=== PATIENT | male | born 1950 | race Caucasian/White ===

== ENCOUNTER 2016-10-24 08:32 | Emergency (ER) | payer OTHER ==
[2016-10-24] MEDS ORDERED: Nitroglycerin 0.4 MG Tab.SL SL PRN (08:39)
[2016-10-24] MEDS ORDERED: Aspirin 81 MG Tab.Chew PO ONE (08:39)
--- NOTE | 2016-10-24 08:53 | EDM.PDOC ---
<Ly Donato - Last Filed: 10/24/16 10:32> ED HISTORY OF PRESENT ILLNESS - General Chief Complaint: Chest Pain Stated Complaint: CHEST HURTING REALLY BAD Time Seen by Provider: 10/24/16 08:34 - History of Present Illness INITIAL COMMENTS - FREE TEXT/NARRATIVE: This is Dr. Donato dictating an addendum note as a supervising physician on this case. I agree with history and physical as above. The patient does follow here in our clinic and has a history of hypertension. 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 He is a one pack a day smoker denies drug use. Initially he told the resident that his chest pain was a 6/10 but on my evaluation he states it was "barely in the air and significantly improved". The patient describes the pain as a pressure- like feeling in his mid sternum it is nonradiating and not associated with diaphoresis or nausea. He says he's been short of breath on and off over the last few weeks but he cannot quantitate or identify a trigger. He says that with the discomfort this morning he did feel short of breath and that has since resolved as well. He is eating and drinking normally and states he has not had a cardiac evaluation for at least 8 years. We will proceed to followup or testing and plan disposition for admission for further monitoring and cardiac evaluation. All testing results were discussed with the patient and he was off for 23 hour observation which he is refusing. Patient understands that we cannot rule out cardiac problems in the ER and that he would need to have an observational period with more testing and he is aware of this and refuses. He is aware of risk benefits accepts them and says he will call for a clinic appointment. I also advised that he could return to the ER if he chooses to be admitted. Patient is currently pain-free - Related Data Allergies/ADRs: Allergies Allergy/AdvReac Type Severity Reaction Status Date / Time Sulfa (Sulfonamide Allergy Rash Verified 12/01/13 10:04 Antibiotics) Home Meds: Home Meds Losartan [Cozaar] 1 tab PO DAILY 03/04/15 [History] amLODIPine Besylate [Amlodipine Besylate] 1 tab PO DAILY 03/04/15 [History] Multivitamin [Multivitamins] 1 tab PO DAILY 06/12/16 [History] Course - Vital Signs Last Recorded V/S: Last Vital Signs Temp 97.5 F 10/24/16 08:39 Pulse 82 10/24/16 08:39 Resp 20 10/24/16 08:39 BP 148/91 H 10/24/16 08:49 Pulse Ox 94 L 10/24/16 08:39 - Orders/Labs/Meds Orders: Active Orders 24 hr Category Date Time Status EKG Documentation Completion [RC] STAT Care 10/24/16 08:39 Active Oxygen Therapy, ED [RC] ASDIRECTED Care 10/24/16 08:40 Active Labs: Laboratory Tests 10/24/16 10/24/16 10/24/16 Range/Units 08:40 08:40 08:40 WBC 9.19 (4.0-11.0) K/uL RBC 5.57 (4.50-5.90) M/uL Hgb 16.3 (13.0-17.0) g/dL Hct 48.9 (38.0-50.0) % MCV 87.8 (80.0-98.0) fL MCH 29.3 (27.0-32.0) pg MCHC 33.3 (31.0-37.0) g/dL RDW Std Deviation 45.8 (28.0-62.0) fl RDW Coeff of Christopher 14 (11.0-15.0) % Plt Count 229 (150-400) K/uL MPV 10.60 (7.40-12.00) fL Neut % (Auto) 57.8 (48.0-80.0) % Lymph % (Auto) 29.1 (16.0-40.0) % Bingham % (Auto) 11.0 (0.0-15.0) % Eos % (Auto) 1.7 (0.0-7.0) % Baso % (Auto) 0.4 (0.0-1.5) % Neut # (Auto) 5.3 (1.4-5.7) K/uL Lymph # (Auto) 2.7 H (0.6-2.4) K/uL Bingham # (Auto) 1.0 H (0.0-0.8) K/uL Eos # (Auto) 0.2 (0.0-0.7) K/uL Baso # (Auto) 0.0 (0.0-0.1) K/uL Nucleated RBC % 0.0 /100WBC Nucleated RBCs # 0 K/uL Sodium 141 (136-146) mmol/L Potassium 4.5 (3.5-5.1) mmol/L Chloride 109 (98-110) mmol/L Carbon Dioxide 24 (21-31) mmol/L BUN 25 H (6.0-23.0) mg/dL Creatinine 1.4 (0.6-1.5) mg/dL Est Cr Clr Drug Dosing 48.10 mL/min Estimated GFR (MDRD) 51.0 ml/min Glucose 97 (60-110) mg/dL Calcium 9.2 (8.8-10.8) mg/dL Total Bilirubin 0.5 (0.1-1.5) mg/dL AST 20 (5-40) IU/L ALT 19 (8-54) IU/L Alkaline Phosphatase 98 (40-150) CK-MB (CK-2) 2.1 (0-6.6) ng/ml Troponin I < 0.10 (0.0-0.29) NG/ML Total Protein 7.4 (6.0-8.0) g/dL Albumin 4.2 (3.4-4.8) g/dL Globulin 3.2 (2.0-3.5) g/dL Albumin/Globulin Ratio 1.3 (1.3-2.8) Meds: Medications Discontinued Medications Generic Name Dose Route Start Last Admin Trade Name Freq PRN Reason Stop Dose Admin Aspirin 324 mg 10/24/16 08:39 10/24/16 08:48 Aspirin PO 10/24/16 08:40 324 mg ONETIME ONE Administration Nitroglycerin 0.4 mg 10/24/16 08:39 10/24/16 08:49 Nitrostat SL 10/24/16 08:50 0.4 mg Q5M PRN Administration Chest Pain Departure - Departure Time of Disposition: 10:33 Disposition: Home, Self-Care 01 Condition: good Clinical Impression: Chest pain Qualifiers: Chest pain type: unspecified Qualified Code(s): R07.9 - Chest pain, unspecified Referrals: PCP,None [Primary Care Provider] - Forms: ED Department Discharge Additional Instructions: The following information is given to patients seen in the emergency department who are being discharged to home. This information is to outline your options for follow-up care. We provide all patients seen in our emergency department with a follow-up referral. The need for follow-up, as well as the timing and circumstances, are variable depending upon the specifics of your emergency department visit. If you don't have a primary care physician on staff, we will provide you with a referral. We always advise you to contact your personal physician following an emergency department visit to inform them of the circumstance of the visit and for follow-up with them and/or the need for any referrals to a consulting specialist. The emergency department will also refer you to a specialist when appropriate. This referral assures that you have the opportunity for followup care with a specialist. All of these measure are taken in an effort to provide you with optimal care, which includes your followup. Under all circumstances we always encourage you to contact your private physician who remains a resource for coordinating your care. When calling for followup care, please make the office aware that this follow-up is from your recent emergency room visit. If for any reason you are refused follow-up, please contact the [facility] emergency department at and ask to speak to the emergency department charge nurse. [facility] Primary care- Internal Medicine [place] [address] Please call and followup with her clinic physician and please try to reduce and stop smoking. Please return to the ER as needed and as discussed. - My Orders Last 24 Hours: My Active Orders 10/24/16 08:39 EKG Documentation Completion [RC] STAT 10/24/16 08:40 Oxygen Therapy, ED [RC] ASDIRECTED - Assessment/Plan Last 24 Hours: My Active Orders 10/24/16 08:39 EKG Documentation Completion [RC] STAT 10/24/16 08:40 Oxygen Therapy, ED [RC] ASDIRECTED <Leonor Fleming - Last Filed: 10/24/16 10:34> ED HISTORY OF PRESENT ILLNESS - History of Present Illness INITIAL COMMENTS - FREE TEXT/NARRATIVE: History of present illness: [66-year-old male with a past medical history of hypertension, chronic smoker presents with an substernal chest pain. He woke up this morning and felt chest tightness, shortness of breath. He states that the chest pain did not wake him up but started progressively getting worse with tightnessthis morning 01/11. It does not radiate.He is a business office specialist and felt he was progressively felt SOB. He denies leg swelling, gerd symptoms, diaphoresis, headache, n/v/d, abdominal pain. He takes Norvasc for HTN. He does not take aspirin. He did have stress test 8 years ago where he states it was normal. ] Review of systems: As per history of present illness and below otherwise all systems reviewed and negative. Past medical history: As per history of present illness and as reviewed below otherwise noncontributory. Surgical history: As per history of present illness and as reviewed below otherwise noncontributory. Social history: No reported history of drug or alcohol abuse. Family history: As per history of present illness and as reviewed below otherwise noncontributory. Physical exam: General: Well developed, well nourished in NAD HEENT: Atraumatic, normocephalic, pupils reactive, negative for conjunctival pallor or scleral icterus, mucous membranes moist, throat clear, neck supple, nontender, trachea midline. Lungs: Clear to auscultation, breath sounds equal bilaterally, chest nontender. Heart: S1S2, regular, negative for clicks, rubs, or JVD. Abdomen: Soft, nondistended, nontender. Negative for masses or hepatosplenomegaly. Negative for costovertebral tenderness. Pelvis: Stable nontender. Genitourinary: Deferred. Rectal: Deferred. Extremities: Atraumatic, negative for cords or calf pain. Neurovascular unremarkable. No bilateral edema. Neuro: Awake, alert, oriented. Cranial nerves II through XII unremarkable. Cerebellum unremarkable. Motor and sensory unremarkable throughout. Exam nonfocal. Skin: anterior chest: there is macupapular rash without nodules or pustules. Diagnostics: [EKG: sinus rhythm, chest x-ray : no acute cardio-pulmonary abnormalities, troponin x 1 negative CK-MB, CBC, CMP] Therapeutics: [Aspirin 324 mg chew, nitroglycerin sublingual x1] Impression: [Chest pain R/O acute coronary syndrome] Plan: [Due to his risk factors: white male, smoker, HTN: admit to rule out ACS. patient had refused admission. I did discuss with him that he needs to be admitted for checking his troponin and monitored in telemetry. He would like to go home. Dr. Donato attending physician will speak to the patient. ] Definitive disposition and diagnosis as appropriate pending reevaluation and review of above. Past Medical History HEENT History: Reports: None Cardiovascular History: Reports: Heart murmur, Hypertension Respiratory History: Reports: COPD Gastrointestinal History: Reports: Colon polyp Genitourinary History: Reports: None Musculoskeletal History: Reports: Back pain, chronic Other Musculoskeletal History: spinal stenosis Psychiatric History: Reports: None Endocrine/Metabolic History: Reports: Obesity/BMI 30+ Hematologic History: Reports: None Immunologic History: Reports: None Oncologic (Cancer) History: Reports: None Dermatologic History: Reports: None - Past Surgical History Head Surgeries/Procedures: Reports: None GI Surgical History: Reports: Cholecystectomy, Colonoscopy Neurological Surgical History: Reports: Lumbar spine Other Neurological Surgeries/Procedures: surgery for spinal stenosis Social & Family History - Tobacco Use Smoking Status *Q: Current Every Day Smoker Years of Tobacco use: 25 Packs/Tins Daily: 1 - Caffeine Use Caffeine Use: Reports: Coffee - Recreational Drug Use Recreational Drug Use: No Drug Use in Last 12 Months: No ED ROS GENERAL - Review of Systems Review Of Systems: See Below (History of present illness) ED EXAM, GENERAL - Physical Exam Exam: See Below (History of present illness) Course - Orders/Labs/Meds Labs: Laboratory Tests 10/24/16 10/24/16 10/24/16 Range/Units 08:40 08:40 08:40 WBC 9.19 (4.0-11.0) K/uL RBC 5.57 (4.50-5.90) M/uL Hgb 16.3 (13.0-17.0) g/dL Hct 48.9 (38.0-50.0) % MCV 87.8 (80.0-98.0) fL MCH 29.3 (27.0-32.0) pg MCHC 33.3 (31.0-37.0) g/dL RDW Std Deviation 45.8 (28.0-62.0) fl RDW Coeff of Chrisotpher 14 (11.0-15.0) % Plt Count 229 (150-400) K/uL MPV 10.60 (7.40-12.00) fL Neut % (Auto) 57.8 (48.0-80.0) % Lymph % (Auto) 29.1 (16.0-40.0) % Bingham % (Auto) 11.0 (0.0-15.0) % Eos % (Auto) 1.7 (0.0-7.0) % Baso % (Auto) 0.4 (0.0-1.5) % Neut # (Auto) 5.3 (1.4-5.7) K/uL Lymph # (Auto) 2.7 H (0.6-2.4) K/uL Bingham # (Auto) 1.0 H (0.0-0.8) K/uL Eos # (Auto) 0.2 (0.0-0.7) K/uL Baso # (Auto) 0.0 (0.0-0.1) K/uL Nucleated RBC % 0.0 /100WBC Nucleated RBCs # 0 K/uL Sodium 141 (136-146) mmol/L Potassium 4.5 (3.5-5.1) mmol/L Chloride 109 (98-110) mmol/L Carbon Dioxide 24 (21-31) mmol/L BUN 25 H (6.0-23.0) mg/dL Creatinine 1.4 (0.6-1.5) mg/dL Est Cr Clr Drug Dosing 48.10 mL/min Estimated GFR (MDRD) 51.0 ml/min Glucose 97 (60-110) mg/dL Calcium 9.2 (8.8-10.8) mg/dL Total Bilirubin 0.5 (0.1-1.5) mg/dL AST 20 (5-40) IU/L ALT 19 (8-54) IU/L Alkaline Phosphatase 98 (40-150) CK-MB (CK-2) 2.1 (0-6.6) ng/ml Troponin I < 0.10 (0.0-0.29) NG/ML Total Protein 7.4 (6.0-8.0) g/dL Albumin 4.2 (3.4-4.8) g/dL Globulin 3.2 (2.0-3.5) g/dL Albumin/Globulin Ratio 1.3 (1.3-2.8)
--- NOTE | 2016-10-24 09:05 | CR ---
EXAMINATION: Portable chest radiograph. HISTORY: Shortness of breath. FINDINGS: The trachea is midline. The cardiomediastinal silhouette is within normal limits. No pulmonary infil trates, effusions or pneumothorax. Osseous structures appear unremarkable. IMPRESSION: No acute cardiopulmonary process.
[2016-10-24 10:48] VITALS: BP 135/95
== END 2016-10-24 10:49 | disposition home or self-care (01) ==
LOC: MW.ED 08:32
DX: R07.9 Chest pain, unspecified (principal); R01.1 Cardiac murmur, unspecified; I10 Essential (primary) hypertension; J44.9 Chronic obstructive pulmonary disease, unspecified; E66.9 Obesity, unspecified; F17.210 Nicotine dependence, cigarettes, uncomplicated; Z90.49 Acquired absence of other specified parts of digestive tract; Z88.2 Allergy status to sulfonamides; Z79.899 Other long term (current) drug therapy
CPT/HCPCS: 36415; 71010; 80053; 82553; 84484; 85025; 99285; A9270; 99284

== ENCOUNTER 2018-02-11 09:21 | Day surgery (SDC) | payer OTHER, MEDICARE ==
[~2018-02-11 09:21] MED LIST: Bupivacaine 0.25%/EPINEPHrine 1:200,000 10 ML SDV INJECT ONE; Bupivacaine 25%/EPINEPHrine/PF 30 ML ONE; Dexamethasone 4 MG/ML 5 ML MDV ONE; Lactated Ringers 1,000 ML IV SCH; Midazolam 1 MG/ML 2 ML SDV ONE; Ondansetron 4 MG/2 ML SDV ONE; Propofol 200 MG/20 ML SDV ONE; ceFAZolin 2 GM in Premix Bag 1 BAG IV ONE; ceFAZolin/Dextrose,Iso-Osmotic 2 GM/50 ML Duplex Bag IV ONE; fentaNYL 100 MCG/2 ML SDV ONE; traMADol 50 MG Tab PO PRN
--- NOTE | 2018-02-11 11:18 | PCM.PREANE ---
Preanesthetic Assessment - Procedure Proposed Procedure: right thumb ganglion cystectomy - Anesthesia/Transfusion/Family Hx Anesthesia History: Prior Anesthesia Without Reaction Transfusion History: No Prior Transfusion(s) - Review of Systems General: No Symptoms, Other (skin squamous cell) Pulmonary: Other (smoker) Cardiovascular: Other (HTN) Gastrointestinal: No Symptoms Neurological: Other (pain in right thumb due to protrusion of gangliion) - Physical Assessment NPO Status Date: 02/10/18 NPO Status Time: 19:00 O2 Sat by Pulse Oximetry: 98 Respiratory Rate: 15 Vital Signs: Last Vital Signs Temp 97.3 F 02/11/18 09:40 Pulse 78 02/11/18 09:40 Resp 15 02/11/18 09:40 BP 133/79 02/11/18 09:40 Pulse Ox 98 02/11/18 09:40 Height: 5 ft 6 in Weight: 216 lb ASA Class: 2 Mental Status: Alert & Oriented x3 Airway Class: Mallampati = 2 Dentition: Reports: Missing Tooth/Teeth (frontals) Thyro-Mental Finger Breadths: 3 Mouth Opening Finger Breadths: 3 (bearded) ROM/Head Extension: Limited/Partial - Allergies Allergies/Adverse Reactions: Allergies Allergy/AdvReac Type Severity Reaction Status Date / Time Sulfa (Sulfonamide Allergy Shortness Verified 02/06/18 08:30 Antibiotics) of Breath - Blood Blood Available: No Product(s) Available: None - Anesthesia Plan Pre-Op Medication Ordered: None - Acknowledgements Anesthesia Type Planned: General Anesthesia (LMA/OET vs MAC/local), MAC Additional Comments: Sleeps on belly with snoring, unable to assure sedation will work due to UResp issues. PreAnesthesia Questionnaire HEENT History: Reports: Other (See Below) Other HEENT History: wears glasses, top partial Cardiovascular History: Reports: Heart Murmur, Hypertension Other Cardiovascular History: murmur as a child Respiratory History: Reports: COPD Gastrointestinal History: Reports: Colon Polyp Genitourinary History: Reports: None Musculoskeletal History: Reports: Back Pain, Chronic Other Musculoskeletal History: spinal stenosis Psychiatric History: Reports: None Endocrine/Metabolic History: Reports: Obesity/BMI 30+ Hematologic History: Reports: None Immunologic History: Reports: None Oncologic (Cancer) History: Reports: Squamous Cell Carcinoma Dermatologic History: Reports: None - Past Surgical History Head Surgeries/Procedures: Reports: None GI Surgical History: Reports: Cholecystectomy, Colonoscopy Neurological Surgical History: Reports: Lumbar Spine Other Neurological Surgeries/Procedures: surgery for spinal stenosis Dermatological Surgical History: Reports: Skin Biopsy - SUBSTANCE USE Smoking Status *Q: Current Every Day Smoker Tobacco Use Within Last Twelve Months: Cigarettes Recreational Drug Use History: No - HOME MEDS Home Medications: Home Meds Losartan [Cozaar] 1 tab PO BEDTIME 03/04/15 [History] amLODIPine Besylate [Amlodipine Besylate] 1 tab PO BEDTIME 03/04/15 [History] Multivitamin [Multivitamins] 1 tab PO DAILY 06/12/16 [History] - CURRENT (IN HOUSE) MEDS Current Meds: Current Medications Lactated Ringer's (Ringers, Lactated) 1,000 mls @ 125 mls/hr IV ASDIRECTED RENETTA Last Admin: 02/11/18 09:52 Dose: 125 mls/hr Tramadol HCl (Ultram) 50 mg PO Q4H PRN PRN Reason: Pain Discontinued Medications Bupivacaine HCl/Epinephrine Bitart (Marcaine 0.25%/Epinephrine 1:200,000) 10 ml INJECT ONETIME ONE Stop: 02/11/18 08:01 Cefazolin Sodium/Dextrose (Ancef) Confirm Administered Dose 2 gm IV .STK-MED ONE Stop: 02/11/18 07:34 Dexamethasone (Dexamethasone) Confirm Administered Dose 20 mg .ROUTE .STK-MED ONE Stop: 02/11/18 07:06 Fentanyl (Sublimaze) Confirm Administered Dose 100 mcg .ROUTE .STK-MED ONE Stop: 02/11/18 07:05 Cefazolin Sodium/Dextrose 2 gm (/ Premix) 50 mls @ 100 mls/hr IV ONETIME ONE Stop: 02/11/18 08:29 Bupivacaine HCl/Epinephrine Bitart (Sensorc Mpf 0.25%-Epi 1:[id number]) Confirm Administered Dose 30 mls @ as directed .ROUTE .STK-MED ONE Stop: 02/11/18 07:30 Midazolam HCl (Versed 1 Mg/Ml) Confirm Administered Dose 2 mg .ROUTE .STK-MED ONE Stop: 02/11/18 07:05 Ondansetron HCl (Zofran) Confirm Administered Dose 4 mg .ROUTE .STK-MED ONE Stop: 02/11/18 07:06 Propofol (Diprivan 20 Ml) Confirm Administered Dose 200 mg .ROUTE .K-MED ONE Stop: 02/11/18 07:04
[2018-02-11 12:06] VITALS: BP 105/67
--- NOTE | 2018-02-11 12:32 | PCM48HPAN ---
Post Anesthesia Note - EVALUATION WITHIN 48HRS OF ANESTHETIC Resp Rate: 15 - COMMENTS/OBSERVATIONS Free Text/Narrative:: Patient was returned to [facility] for phase II directly from the OR. He was discharged a few minutes ago and i met him in the hallway. satisfied with care given.
--- NOTE | 2018-02-12 09:30 | PCM.OPNOTE ---
- General Post-Op/Procedure Note Date of Surgery/Procedure: 02/11/18 Operative Procedure(s): excision of right thumb DIP joint ganglion and bone spur Pre Op Diagnosis: right thumb dip joint ganglion and bone spur Post-Op Diagnosis: Same Anesthesia Technique: Local, MAC Primary Surgeon: Zoë Villa Differential Repairer: Aleshia Li Complications: None Condition: Good
--- NOTE | 2018-02-17 06:14 | OR ---
SURGEON: ROBERTA SEGURA MD DATE OF PROCEDURE: 02/12/2018 PREOPERATIVE DIAGNOSIS: Right thumb distal interphalangeal joint ganglion and bone spur. POSTOPERATIVE DIAGNOSIS: Right thumb distal interphalangeal joint ganglion and bone spur. PROCEDURE: Excision of right thumb DIP joint ganglion and bone spur. MAINTENANCE TRAINER: AARON Wyman. ANESTHESIA: Local MAC. INDICATIONS: Mr. Manzano is a 67-year-old gentleman seen today in evaluation for a very large DIP joint ganglion on the right thumb that has clearly had some bony reaction underneath. Risks and benefits of excision were discussed with him including, but not limited to, bleeding, infection, damage to underlying or overlying structures, possible need for future interventions, and possible scarring. PROCEDURE IN DETAIL: After informed consent was obtained and placed on the chart, the patient was brought to the operating theater and laid in supine position. After adequate local MAC anesthesia was obtained, the area was prepped and draped, a time-out was completed to confirm side and site. After infiltration of local anesthesia, the arm was exsanguinated and the tourniquet was insufflated to 200 mmHg. Attention was then paid to the DIP joint ganglion and the skin area where it was eroded through was excised in elliptical fashion and dissection was carried down circumferentially around the lesion itself. The joint itself was reached and the significant bone spur was trimmed using a rongeur. Both of these were sent for pathology and once adequately excised and smoothed, attention was then paid to copious irrigation, trimming of the skin, and appropriate closure using a 5-0 chromic stitch in a horizontal mattress fashion. Once adequately closed, the wound was dressed with a Band-Aid. The patient tolerated this well. All counts of needles were correct at the end of the case. FOLLOWUP INSTRUCTIONS: The patient was given a prescription for pain control and will see us in 2 weeks, sooner if any problems, questions, or concerns. HEGGTHE / VANESAL /[id number]
== END 2018-02-11 12:15 | disposition home or self-care (01) ==
LOC: MW.SDS 09:21
PROVIDERS: ATTEND Plastic Surgery
DX: M67.843 Other specified disorders of tendon, right hand (principal); I10 Essential (primary) hypertension; J44.9 Chronic obstructive pulmonary disease, unspecified; E66.9 Obesity, unspecified; Z68.34 Body mass index [BMI] 34.0-34.9, adult; F17.210 Nicotine dependence, cigarettes, uncomplicated; Z79.899 Other long term (current) drug therapy; Z88.2 Allergy status to sulfonamides
CPT/HCPCS: 26160; 88305; J0690; J1100; J2250; J2405; J3010; J7120; 01810; J2704

== ENCOUNTER 2019-02-12 09:05 | Emergency (ER) | payer OTHER, MEDICARE ==
[2019-02-12 09:17] VITALS: BP 149/88
--- NOTE | 2019-02-12 09:17 | EDM.PDOC ---
ED HPI GENERAL MEDICAL PROBLEM - General Chief Complaint: Wound Recheck Stated Complaint: RIGHT LEG WOUND POST SURGERY Time Seen by Provider: 02/12/19 09:06 Source of Information: Reports: Patient History Limitations: Reports: No Limitations - History of Present Illness INITIAL COMMENTS - FREE TEXT/NARRATIVE: History of present illness: []Patient had surgery Dr. Grullon on his right thigh on January 05 and his wound opened up last night. Patient was told by Dr. Grullon's office to come to the ER to make sure it was not infected. Patient denies any fevers or increased pain. Review of systems: As per history of present illness and below otherwise all systems reviewed and negative. Past medical history: As per history of present illness and as reviewed below otherwise noncontributory. Surgical history: As per history of present illness and as reviewed below otherwise noncontributory. Social history: No reported history of drug or alcohol abuse. Family history: As per history of present illness and as reviewed below otherwise noncontributory. Physical exam: General: Well developed, well nourished in NAD HEENT: Atraumatic, normocephalic, pupils reactive, negative for conjunctival pallor or scleral icterus, mucous membranes moist, throat clear, neck supple, nontender, trachea midline. Lungs: Clear to auscultation, breath sounds equal bilaterally, chest nontender. Heart: S1S2, regular, negative for clicks, rubs, or JVD. Abdomen: NABS, Soft, nondistended, nontender. Negative for masses or hepatosplenomegaly. Negative for costovertebral tenderness. Pelvis: Stable nontender. Genitourinary: Deferred. Rectal: Deferred. Extremities: Right lateral thigh incision partially opened and the inferior portion with healthy granulation tissue underneath. There is no purulent drainage noted there is surrounding erythema no fluctuance, negative for cords or calf pain. Neurovascular unremarkable. Neuro: Awake, alert, oriented. Cranial nerves II through XII unremarkable. Cerebellum unremarkable. Motor and sensory unremarkable throughout. Exam nonfocal. Skin:warm and dry Diagnostics: None Therapeutics: Dressing change ED Course: Stable Impression: Partial wound dehiscence Prescriptions: Keflex Plan: Follow-up with Dr. Grullon as soon as possible. Definitive disposition and diagnosis as appropriate pending reevaluation and review of above. right thigh wound Pain Score (Numeric/FACES): 4 - Related Data Allergies Allergy/AdvReac Type Severity Reaction Status Date / Time Sulfa (Sulfonamide Allergy Shortness Verified 02/06/18 08:30 Antibiotics) of Breath Home Meds: Home Meds Losartan [Cozaar] 1 tab PO BEDTIME 03/04/15 [History] amLODIPine Besylate [Amlodipine Besylate] 1 tab PO BEDTIME 03/04/15 [History] Multivitamin [Multivitamins] 1 tab PO DAILY 06/12/16 [History] traMADol [Ultram] 50 mg PO Q4H PRN #20 tablet 02/11/18 [Rx] Cephalexin [Keflex] 500 mg PO TID #30 capsule 02/12/19 [Rx] Past Medical History HEENT History: Reports: Other (See Below) Other HEENT History: wears glasses, top partial Cardiovascular History: Reports: Heart Murmur, Hypertension Other Cardiovascular History: murmur as a child Respiratory History: Reports: COPD Gastrointestinal History: Reports: Colon Polyp Genitourinary History: Reports: None Musculoskeletal History: Reports: Back Pain, Chronic Other Musculoskeletal History: spinal stenosis Psychiatric History: Reports: None Endocrine/Metabolic History: Reports: Obesity/BMI 30+ Hematologic History: Reports: None Immunologic History: Reports: None Oncologic (Cancer) History: Reports: Squamous Cell Carcinoma Dermatologic History: Reports: None - Past Surgical History Head Surgeries/Procedures: Reports: None GI Surgical History: Reports: Cholecystectomy, Colonoscopy Neurological Surgical History: Reports: Lumbar Spine Other Neurological Surgeries/Procedures: surgery for spinal stenosis Dermatological Surgical History: Reports: Skin Biopsy Social & Family History - Caffeine Use Caffeine Use: Reports: Coffee ED ROS GENERAL - Review of Systems Review Of Systems: See Below ED EXAM, SKIN/RASH Exam: See Below Course - Vital Signs Last Recorded V/S: Last Vital Signs Temp 97 F 02/12/19 09:12 Pulse 87 02/12/19 09:12 Resp 16 02/12/19 09:12 BP 149/88 H 02/12/19 09:12 Pulse Ox 93 L 02/12/19 09:12 Departure - Departure Time of Disposition: 09:28 Disposition: Home, Self-Care 01 Condition: Good Clinical Impression: Wound dehiscence - Discharge Information *PRESCRIPTION DRUG MONITORING PROGRAM REVIEWED*: No *COPY OF PRESCRIPTION DRUG MONITORING REPORT IN PATIENT TAVO: No Prescriptions: Cephalexin [Keflex] 500 mg PO TID #30 capsule Referrals: PCP,None [Primary Care Provider] - Forms: ED Department Discharge Additional Instructions: The following information is given to patients seen in the emergency department who are being discharged to home. This information is to outline your options for follow-up care. We provide all patients seen in our emergency department with a follow-up referral. The need for follow-up, as well as the timing and circumstances, are variable depending upon the specifics of your emergency department visit. If you don't have a primary care physician on staff, we will provide you with a referral. We always advise you to contact your personal physician following an emergency department visit to inform them of the circumstance of the visit and for follow-up with them and/or the need for any referrals to a consulting specialist. The emergency department will also refer you to a specialist when appropriate. This referral assures that you have the opportunity for follow-up care with a specialist. All of these measure are taken in an effort to provide you with optimal care, which includes your follow-up. Under all circumstances we always encourage you to contact your private physician who remains a resource for coordinating your care. When calling for follow-up care, please make the office aware that this follow-up is from your recent emergency room visit. If for any reason you are refused follow-up, please contact the [facility] Emergency Department at and asked to speak to the emergency department charge nurse. Take meds as directed, follow up with your primary care physician, return to ER if symptoms worsen or change. [facility] - General Surgery Professional Building [address] [place] [address], [address] [place] [address]
== END 2019-02-12 09:35 | disposition home or self-care (01) ==
LOC: MW.ED 09:05
DX: T81.31XA Disruption of external operation (surgical) wound, not elsewhere classified, initial encounter (principal); I10 Essential (primary) hypertension; J44.9 Chronic obstructive pulmonary disease, unspecified; Z79.899 Other long term (current) drug therapy; Z88.2 Allergy status to sulfonamides
CPT/HCPCS: 99282

== ENCOUNTER 2019-10-18 13:22 | Emergency (ER) | payer OTHER ==
[2019-10-18 13:40] VITALS: BP 144/86; PULSE 98
--- NOTE | 2019-10-18 13:56 | EDM.PDOC ---
ED HPI GENERAL MEDICAL PROBLEM - General Chief Complaint: Head Injury Stated Complaint: HIT HEAD Time Seen by Provider: 10/18/19 13:38 Source of Information: Reports: Patient History Limitations: Reports: No Limitations - History of Present Illness INITIAL COMMENTS - FREE TEXT/NARRATIVE: HISTORY AND PHYSICAL: History of present illness: Patient is a 69-year-old male who presents to the ED today with concern of head injury and scalp laceration that occurred approximately 1 hour prior to arrival to the ED. Patient states he was walking outside when he slipped on the ice and hit the back of his head. Patient states he did not lose consciousness. Patient states he is not up-to-date on his tetanus but does not desire having this updated today. Patient denies any other symptoms or concerns. Patient denies fever, chills, chest pain, shortness of breath, or cough. Denies headache, neck stiff ness, change in vision, syncope, or near syncope. Denies nausea, vomiting, abdominal pain, diarrhea, constipation, or dysuria. Has not noted any blood in urine or stool. Patient has been eating and drinking appropriately. Review of systems: As per history of present illness and below otherwise all systems reviewed and negative. Past medical history: As per history of present illness and as reviewed below otherwise noncontributory. Surgical history: As per history of present illness and as reviewed below otherwise noncontributory. Social history: See social history for further information Family history: As per history of present illness and as reviewed below otherwise noncontributory. Physical exam: General: Patient is alert, oriented, and in no acute distress. Patient sitting comfortably on exam table. HEENT: There is a 2 cm laceration that is irregular with 1 cm being subcutaneous and the other 1/2 cm of the laceration being superficial with surrounding dried blood. No obvious hematoma.Otherwise, Atraumatic, normocephalic, pupils equal and reactive bilaterally, negative for conjunctival pallor or scleral icterus, mucous membranes moist, TMs normal bilaterally, throat clear, neck supple, nontender, trachea midline. No drooling or trismus noted. No meningeal signs. No hot potato voice noted. Lungs: Clear to auscultation, breath sounds equal bilaterally, chest nontender. Heart: S1S2, regular rate and rhythm without overt murmur Abdomen: Soft, nondistended, nontender. Negative for masses or hepatosplenomegaly. Negative for costovertebral tenderness. Pelvis: Stable nontender. Genitourinary: Deferred. Rectal: Deferred. Skin: Intact, warm, dry. No lesions or rashes noted. Extremities: Atraumatic, negative for cords or calf pain. Neurovascular unremarkable. Neuro: Awake, alert, oriented. Cranial nerves II through XII unremarkable. Cerebellum unremarkable. Motor and sensory unremarkable throughout. Exam nonfocal. Notes: Discussed importance for follow-up with primary care provider. Voices understanding and is agreeable to plan of care. Denies any further questions or concerns at this time. Diagnostics: Head CT (labwork, EKG offered but patient declines) Therapeutics: (declines tetanus), Vignesh Prescription: None Impression: Head injury Scalp laceration Plan: 1. Keep the area clean and dry. Continue to monitor for signs of infection as discussed. Vignesh to be removed in 7-10 days. 2. Tylenol and/or ibuprofen as directed and as needed for pain management and discomfort. 3. Please follow-up with your primary care provider as discussed. Return to the ED as needed and as discussed. Definitive disposition and diagnosis as appropriate pending reevaluation and review of above. Posterior Head Pain Score (Numeric/FACES): 9 - Related Data Allergies Allergy/AdvReac Type Severity Reaction Status Date / Time Sulfa (Sulfonamide Allergy Shortness Verified 02/06/18 08:30 Antibiotics) of Breath Home Meds: Home Meds Losartan [Cozaar] 1 tab PO BEDTIME 03/04/15 [History] amLODIPine Besylate [Amlodipine Besylate] 1 tab PO BEDTIME 03/04/15 [History] Past Medical History HEENT History: Reports: Other (See Below) Other HEENT History: wears glasses, top partial Cardiovascular History: Reports: Heart Murmur, Hypertension Other Cardiovascular History: murmur as a child Respiratory History: Reports: COPD Gastrointestinal History: Reports: Colon Polyp Genitourinary History: Reports: None Musculoskeletal History: Reports: Back Pain, Chronic Other Musculoskeletal History: spinal stenosis Psychiatric History: Reports: None Endocrine/Metabolic History: Reports: Obesity/BMI 30+ Hematologic History: Reports: None Immunologic History: Reports: None Oncologic (Cancer) History: Reports: Squamous Cell Carcinoma Other Oncologic History: sarcoma Dermatologic History: Reports: None - Past Surgical History Head Surgeries/Procedures: Reports: None GI Surgical History: Reports: Cholecystectomy, Colonoscopy Neurological Surgical History: Reports: Lumbar Spine Other Neurological Surgeries/Procedures: surgery for spinal stenosis Dermatological Surgical History: Reports: Skin Biopsy Social & Family History - Family History Family Medical History: Noncontributory - Tobacco Use Smoking Status *Q: Current Every Day Smoker Years of Tobacco use: 50 Packs/Tins Daily: 1 - Caffeine Use Caffeine Use: Reports: Coffee - Recreational Drug Use Recreational Drug Use: No ED ROS GENERAL - Review of Systems Review Of Systems: Comprehensive ROS is negative, except as noted in HPI. ED EXAM, HEAD INJURY - Physical Exam Exam: See Below (see dictation) ED LACERATION/WOUND & EDDIE PROC - Laceration/Wound Repair Posterior Head Lac/wound length in cm: 2 Appearance: Superficial, Subcutaneous, Irregular Distal NVT: Neuro & Vascular Intact, No Tendon Injury Skin Prep: Chlorhexidine (Hibiciens), Saline Saline irrigation (cc's): 100 Exploration/Debridement/Repair: Wound Explored, In a Bloodless Field, Explored to Base, No Foreign Material Found Closed with: [place] # of Sutures: 2 Suture Type: Interrupted Drain Placement: No Sterile Dressing Applied: Nurse Tetanus Status Addressed: No (Patient declines) Complications: No Course - Vital Signs Last Recorded V/S: Last Vital Signs Temp 97.6 F 10/18/19 13:36 Pulse 98 10/18/19 13:36 Resp BP 144/86 H 10/18/19 13:36 Pulse Ox 97 10/18/19 13:36 Departure - Departure Time of Disposition: 14:43 Disposition: Home, Self-Care 01 Clinical Impression: Head injury Qualifiers: Encounter type: initial encounter Qualified Code(s): S09.90XA - Unspecified injury of head, initial encounter Scalp laceration Qualifiers: Encounter type: initial encounter Qualified Code(s): S01.01XA - Laceration without foreign body of scalp, initial encounter - Discharge Information Referrals: PCP,None [Primary Care Provider] - Forms: ED Department Discharge Additional Instructions: The following information is given to patients seen in the emergency department who are being discharged to home. This information is to outline your options for follow-up care. We provide all patients seen in our emergency department with a follow-up referral. The need for follow-up, as well as the timing and circumstances, are variable depending upon the specifics of your emergency department visit. If you don't have a primary care physician on staff, we will provide you with a referral. We always advise you to contact your personal physician following an emergency department visit to inform them of the circumstance of the visit and for follow-up with them and/or the need for any referrals to a consulting specialist. The emergency department will also refer you to a specialist when appropriate. This referral assures that you have the opportunity for follow-up care with a specialist. All of these measure are taken in an effort to provide you with optimal care, which includes your follow-up. Under all circumstances we always encourage you to contact your private physician who remains a resource for coordinating your care. When calling for follow-up care, please make the office aware that this follow-up is from your recent emergency room visit. If for any reason you are refused follow-up, please contact the [facility] Emergency Department at and asked to speak to the emergency department charge nurse. [facility] [address] [place], [place] [id number] [place] [address] 1. Keep the area clean and dry. Continue to monitor for signs of infection as discussed. [place] to be removed in 7-10 days. 2. Tylenol and/or ibuprofen as directed and as needed for pain management and discomfort. 3. Please follow-up with your primary care provider as discussed. Return to the ED as needed and as discussed. Sepsis Event Note - Evaluation Sepsis Screening Result: No Definite Risk - Focused Exam Vital Signs: Vital Signs Temp Pulse BP Pulse Ox 10/18/19 13:36 97.6 F 98 144/86 H 97 Date Exam was Performed: 10/18/19 Time Exam was Performed: 14:41
--- NOTE | 2019-10-18 14:37 | CT ---
Head CT Technique: Multiple axial sections through the brain were obtained. Comparison: No prior intracranial imaging is available. Findings: Ventricles along with basal cisterns and sulci over the convexities are within normal limits for the patient's age. No abnormal parenchymal densities are seen. No evidence of intracranial hemorrhage. No midline shift or mass-effect is seen. Bone window settings were reviewed which show slight mucosal thickening within the posterior left ethmoid sinus. Other visualized paranasal sinuses appear to be clear. Mastoid sinuses are clear. No acute calvarial abnormality is seen. Impression: 1. Minimal sinus findings believed to be nonacute. 2. No acute intracranial abnormality is identified. Diagnostic code #2 This report was dictated in MDT
== END 2019-10-18 14:54 | disposition home or self-care (01) ==
LOC: MW.ED 13:22
DX: S01.01XA Laceration without foreign body of scalp, initial encounter (principal); I10 Essential (primary) hypertension; E66.9 Obesity, unspecified; Z88.2 Allergy status to sulfonamides; F17.210 Nicotine dependence, cigarettes, uncomplicated; Z90.49 Acquired absence of other specified parts of digestive tract; W00.0XXA Fall on same level due to ice and snow, initial encounter
CPT/HCPCS: 12001; 70450; 70450-26; 99283-25

== ENCOUNTER 2019-10-26 09:39 | Emergency (ER) | payer OTHER ==
[2019-10-26 10:00] VITALS: BP 123/79; PULSE 81
== END 2019-10-26 09:55 | disposition home or self-care (01) ==
LOC: MW.ED 09:39
DX: Z53.21 Procedure and treatment not carried out due to patient leaving prior to being seen by health care provider (principal)
CPT/HCPCS: 99281; 99284-25

== ENCOUNTER 2020-04-07 09:36 | Day surgery (SDC) | payer OTHER ==
[~2020-04-07 09:36] MED LIST changes: -Bupivacaine 0.25%/EPINEPHrine 1:200,000 10 ML SDV INJECT ONE; -Bupivacaine 25%/EPINEPHrine/PF 30 ML ONE; -Dexamethasone 4 MG/ML 5 ML MDV ONE; -Ondansetron 4 MG/2 ML SDV ONE; -ceFAZolin 2 GM in Premix Bag 1 BAG IV ONE; -ceFAZolin/Dextrose,Iso-Osmotic 2 GM/50 ML Duplex Bag IV ONE; -traMADol 50 MG Tab PO PRN
--- NOTE | 2020-04-07 10:02 | PCM.PREANE ---
Preanesthetic Assessment - Anesthesia/Transfusion/Family Hx Anesthesia History: Prior Anesthesia Without Reaction Family History of Anesthesia Reaction: No Transfusion History: No Prior Transfusion(s) - Review of Systems General: No Symptoms Pulmonary: No Symptoms Cardiovascular: No Symptoms Neurological: No Symptoms Other: Reports: None - Physical Assessment NPO Status Date: 04/06/20 Height: 5 ft 7 in Weight: 93.44 kg ASA Class: 3 Airway Class: Mallampati = 3 Dentition: Reports: Dentures (full upper plate) ROM/Head Extension: Full Lungs: Clear to Auscultation, Normal Respiratory Effort Cardiovascular: Regular Rate, Regular Rhythm - Allergies Allergies/Adverse Reactions: Allergies Allergy/AdvReac Type Severity Reaction Status Date / Time Sulfa (Sulfonamide Allergy Shortness Verified 04/04/20 08:11 Antibiotics) of Breath - Blood Blood Available: No - Anesthesia Plan Pre-Op Medication Ordered: None - Acknowledgements Anesthesia Type Planned: General Anesthesia Pt an Appropriate Candidate for the Planned Anesthesia: Yes Alternatives and Risks of Anesthesia Discussed w Pt/Guardian: Yes Pt/Guardian Understands and Agrees with Anesthesia Plan: Yes PreAnesthesia Questionnaire HEENT History: Reports: Other (See Below) Other HEENT History: wears glasses, top denture Cardiovascular History: Reports: Heart Murmur, Hypertension Other Cardiovascular History: murmur as a child Respiratory History: Reports: None Gastrointestinal History: Reports: Colon Polyp Genitourinary History: Reports: None Musculoskeletal History: Reports: Osteoarthritis Other Musculoskeletal History: spinal stenosis Neurological History: Reports: None Psychiatric History: Reports: None Endocrine/Metabolic History: Reports: Obesity/BMI 30+ Other Endocrine/Metabolic History: was told his right thyroid lobe was slighly enlarged Hematologic History: Reports: None Immunologic History: Reports: None Oncologic (Cancer) History: Reports: Squamous Cell Carcinoma, Other (See Below) Other Oncologic History: sarcoma right thigh, 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 Dermatologic History: Reports: Other (See Below) Other Dermatologic History: chronic right leg wound, 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 - Past Surgical History Head Surgeries/Procedures: Reports: None HEENT Surgical History: Reports: None Cardiovascular Surgical History: Reports: None Respiratory Surgical History: Reports: None GI Surgical History: Reports: Cholecystectomy, Colonoscopy Male Surgical History: Reports: None Endocrine Surgical History: Reports: None Neurological Surgical History: Reports: Lumbar Spine Other Neurological Surgeries/Procedures: surgery for spinal stenosis Musculoskeletal Surgical History: Reports: None Oncologic Surgical History: Reports: Other (See Below) Other Oncologic Surgeries/Procedures: excision of myxofibrosarcoma-rt thigh Dermatological Surgical History: Reports: Skin Biopsy, Other (See Below) - SUBSTANCE USE Smoking Status *Q: Current Every Day Smoker Tobacco Use Within Last Twelve Months: Cigarettes - HOME MEDS Home Medications: Home Meds Losartan [Cozaar] 50 mg PO BEDTIME 03/04/15 [History] amLODIPine Besylate [Amlodipine Besylate] 5 mg PO BEDTIME 03/04/15 [History] - CURRENT (IN HOUSE) MEDS Current Meds: Current Medications Lactated Ringer's (Ringers, Lactated) 1,000 mls @ 125 mls/hr IV ASDIRECTED RENETTA Discontinued Medications Fentanyl (Sublimaze) Confirm Administered Dose 100 mcg .ROUTE .STK-MED ONE Stop: 04/07/20 07:16 Lidocaine HCl (Xylocaine-Mpf 1%) Confirm Administered Dose 5 ml .ROUTE .STK-MED ONE Stop: 04/07/20 07:16 Midazolam HCl (Versed 1 Mg/Ml) Confirm Administered Dose 2 mg .ROUTE .STK-MED ONE Stop: 04/07/20 07:16 Propofol (Diprivan 20 Ml) Confirm Administered Dose 200 mg .ROUTE .STK-MED ONE Stop: 04/07/20 07:15
[2020-04-07] MEDS ORDERED: Propofol 200 MG/20 ML SDV ONE ×2 (11:08→11:33)
[2020-04-07] MEDS ORDERED: Lactated Ringers 1,000 ML IV SCH (11:45)
--- NOTE | 2020-04-07 11:48 | PCM.OPNOTE ---
- General Post-Op/Procedure Note Date of Surgery/Procedure: 04/07/20 Operative Procedure(s): Esophagogastroduodenoscopy with duodenal and gastric biopsies. Colonoscopy with cold rectal polypectomy. Pre Op Diagnosis: Unexplained weight loss. Family history of celiac disease. Personal history of colon polyps. Family history of colon cancer. Post-Op Diagnosis: Moderate chronic duodenitis and gastritis. Rectal polyp. Anesthesia Technique: MAC (ASA III) Primary Surgeon: Alonzo Grullon Condition: Good Free Text/Narrative:: DICTATION [id number] CPT CODE [id number]
--- NOTE | 2020-04-07 12:19 | PCM.POSTAN ---
POST ANESTHESIA ASSESSMENT - MENTAL STATUS Mental Status: Alert, Oriented - VITAL SIGNS Vital Signs: Last Vital Signs Temp 97.2 F 04/07/20 10:11 Pulse 68 04/07/20 12:04 Resp 12 04/07/20 12:04 BP 94/67 04/07/20 12:04 Pulse Ox 95 04/07/20 12:04 - RESPIRATORY Respiratory Status: Respiratory Rate WNL, Airway Patent, O2 Saturation Stable - CARDIOVASCULAR CV Status: Pulse Rate WNL, Blood Pressure Stable - GASTROINTESTINAL GI Status: No Symptoms - POST OP HYDRATION Hydration Status: Adequate & Stable
--- NOTE | 2020-04-07 12:19 | PCM48HPAN ---
Post Anesthesia Note - EVALUATION WITHIN 48HRS OF ANESTHETIC Vital Signs in Normal Range: Yes Patient Participated in Evaluation: Yes Respiratory Function Stable: Yes Airway Patent: Yes Cardiovascular Function Stable: Yes Hydration Status Stable: Yes Pain Control Satisfactory: Yes Nausea and Vomiting Control Satisfactory: Yes Mental Status Recovered: Yes Vital Signs: Last Vital Signs Temp 97.2 F 04/07/20 10:11 Pulse 68 04/07/20 12:04 Resp 12 04/07/20 12:04 BP 94/67 04/07/20 12:04 Pulse Ox 95 04/07/20 12:04
[2020-04-07 13:22] VITALS: BP 112/70; PULSE 70
--- NOTE | 2020-04-07 15:23 | OR ---
SURGEON: Alonzo Grullon M.D. DATE OF PROCEDURE: 04/07/2020 OPERATION PERFORMED: Esophagogastroduodenoscopy with biopsy. PRIMARY SURGEON: Alonzo Grullon MD ANESTHESIA: MAC. ASA CLASSIFICATION: III. PREOPERATIVE DIAGNOSES: 1. Unexplained weight loss. 2. Family history of celiac disease. POSTOPERATIVE DIAGNOSES: 1. Moderate chronic gastritis. 2. Mild esophagitis. DESCRIPTION OF PROCEDURE: The patient was taken to the endoscopy room and positioned on the endoscopy table in the left lateral decubitus position. Time-out was called for appropriate identification of the patient and procedure. Monitored anesthesia care was provided. The bite block was placed between the patient's teeth. The gastroscope was inserted through the bite block and advanced without difficulty through the esophagus and stomach into the duodenum where examination was carried out in a retrograde fashion. The duodenum did show mild to moderate chronic duodenitis and separate biopsies of this area were taken. The stomach also showed a mild to moderate chronic gastritis and biopsies of that area were taken. The gastroscope was retroflexed to visualize the proximal stomach. No tumors or polyps were seen and no acute ulcerations were noted. The gastroscope was then straightened and slowly withdrawn carefully visualizing the greater and lesser curvatures. Again, no ulcers or tumors were noted. The GE junction was well defined. The Z-line was at approximately 42 cm. The esophagus itself demonstrated good contractility. No mid or proximal lesions were identified. The vocal cords were briefly visualized as the scope was withdrawn. The patient tolerated this portion of the procedure well and following colonoscopy was taken to recovery room in stable condition. ABDIRIZAK / NICANOR /[id number]
--- NOTE | 2020-04-07 15:32 | OR ---
SURGEON: Alonzo Grullon M.D. DATE OF PROCEDURE: 04/07/2020 OPERATION PERFORMED: Colonoscopy with cold rectal polypectomy. PRIMARY SURGEON: Alonzo Grullon MD ANESTHESIA: MAC. ASA CLASSIFICATION: III. PREOPERATIVE DIAGNOSES: 1. Unexplained weight loss. 2. Personal history of colon polyps. 3. Family history of colon cancer. POSTOPERATIVE DIAGNOSES: Rectal polyp. DESCRIPTION OF PROCEDURE: With the patient having completed upper GI endoscopy was maintained in the left lateral decubitus position. The colonoscope was inserted into the rectum and advanced with minimal difficulty to the cecum. The cecum was identified by internal landmarks and external pressure. The colonoscope was retroflexed to visualize the ascending colon from below, then straightened and slowly withdrawn. The cecum, ascending colon, hepatic flexure, transverse colon, splenic flexure, descending colon, and sigmoid colon were very well visualized. No tumors, polyps, diverticula, or angiodysplastic changes were noted anywhere in the lower gastrointestinal tract. The colonoscope was withdrawn to the proximal rectum where one polyp was encountered. This was removed with multiple bites of the cold biopsy forceps. The colonoscope was then retroflexed to visualize the anal orifice from above. No tumors, polyps, or acute hemorrhoidal changes were noted. The colonoscope was then straightened, the rectum aspirated, and the colonoscope removed. The patient tolerated the procedure well and was taken to recovery room in stable condition. ABDIRIZAK VICK /[id number]
== END 2020-04-07 12:35 | disposition home or self-care (01) ==
LOC: MW.SDS 09:36
PROVIDERS: ATTEND Surgery
DX: D12.8 Benign neoplasm of rectum (principal); K29.80 Duodenitis without bleeding; K31.89 Other diseases of stomach and duodenum; K29.50 Unspecified chronic gastritis without bleeding; K21.0 Gastro-esophageal reflux disease with esophagitis; C49.9 Malignant neoplasm of connective and soft tissue, unspecified; E66.9 Obesity, unspecified; F17.210 Nicotine dependence, cigarettes, uncomplicated; J44.9 Chronic obstructive pulmonary disease, unspecified; I12.9 Hypertensive chronic kidney disease with stage 1 through stage 4 chronic kidney disease, or unspecified chronic kidney disease; N18.9 Chronic kidney disease, unspecified; Z79.899 Other long term (current) drug therapy; Z86.010 Personal history of colon polyps; Z80.0 Family history of malignant neoplasm of digestive organs; Z83.79 Family history of other diseases of the digestive system; Z88.2 Allergy status to sulfonamides; Z68.32 Body mass index [BMI] 32.0-32.9, adult
CPT/HCPCS: 43239; 45380; J2001; J2250; J2704; J3010; J7120; 00813

== ENCOUNTER 2021-03-02 13:57 | Emergency (ER) | payer MEDICARE, BC ==
[2021-03-02] MEDS ORDERED: Aspirin 81 MG Tab.Chew PO ONE (14:23)
--- NOTE | 2021-03-02 14:28 | EDM.PDOC ---
ED HPI GENERAL MEDICAL PROBLEM - General Chief Complaint: Chest Pain Stated Complaint: CP Time Seen by Provider: 03/02/21 14:08 - History of Present Illness INITIAL COMMENTS - FREE TEXT/NARRATIVE: 89-year-old male presents to the emergency department complaining of chest pain. He states he was working picking up scrap metal iron and had pain in the left side of his chest rating down to the left arm. He sat down and this slowly went away over the period of 10 minutes. There is no known exacerbating or alleviating factors. He states he sat down when it occurred. He does not recall it being pleuritic or sharp. No recent fevers cough or productive sputum. No history of blood clot. No unilateral leg swelling. No recent travel, injury, cancer, surgery. + smoking. Patient denies any direct injury and there is no pain to his chest or arm when he moves from side to side at present. Patient states he had a negative angiogram about 9 years ago but no further additional work-up - Related Data Allergies Allergy/AdvReac Type Severity Reaction Status Date / Time Sulfa (Sulfonamide Allergy Shortness Verified 03/02/21 14:05 Antibiotics) of Breath Home Meds: Home Meds Losartan [Cozaar] 50 mg PO BEDTIME 03/04/15 [History] amLODIPine Besylate [Amlodipine Besylate] 5 mg PO BEDTIME 03/04/15 [History] Aspirin 81 mg PO DAILY 03/02/21 [History] Past Medical History HEENT History: Reports: Other (See Below) Other HEENT History: wears glasses, top partial Cardiovascular History: Reports: Heart Murmur, Hypertension Other Cardiovascular History: murmur as a child Respiratory History: Reports: COPD Gastrointestinal History: Reports: Colon Polyp Genitourinary History: Reports: None Musculoskeletal History: Reports: Back Pain, Chronic Other Musculoskeletal History: spinal stenosis Neurological History: Reports: None Psychiatric History: Reports: None Endocrine/Metabolic History: Reports: Obesity/BMI 30+ Other Endocrine/Metabolic History: was told his right thyroid lobe was slighly enlarged Hematologic History: Reports: None Immunologic History: Reports: None Oncologic (Cancer) History: Reports: Squamous Cell Carcinoma Other Oncologic History: sarcoma Dermatologic History: Reports: None Other Dermatologic History: chronic right leg wound, 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 - Infectious Disease History Infectious Disease History: Reports: None - Past Surgical History Head Surgeries/Procedures: Reports: None HEENT Surgical History: Reports: None Cardiovascular Surgical History: Reports: None Respiratory Surgical History: Reports: None GI Surgical History: Reports: Cholecystectomy, Colonoscopy Male Surgical History: Reports: None Endocrine Surgical History: Reports: None Neurological Surgical History: Reports: Lumbar Spine Other Neurological Surgeries/Procedures: surgery for spinal stenosis Musculoskeletal Surgical History: Reports: None Oncologic Surgical History: Reports: Other (See Below) Other Oncologic Surgeries/Procedures: excision of myxofibrosarcoma-rt thigh Dermatological Surgical History: Reports: Skin Biopsy Social & Family History - Family History Family Medical History: No Pertinent Family History - Tobacco Use Tobacco Use Status *Q: Never Tobacco User - Caffeine Use Caffeine Use: Reports: None - Recreational Drug Use Recreational Drug Use: No ED ROS GENERAL - Review of Systems Review Of Systems: Comprehensive ROS is negative, except as noted in HPI. Constitutional: Denies: Fever, Diaphoresis Respiratory: Denies: Shortness of Breath, Cough Cardiovascular: Reports: Chest Pain GI/Abdominal: Denies: Abdominal Pain, Vomiting : Denies: Dysuria Musculoskeletal: Reports: Arm Pain Skin: Denies: Diaphoresis Neurological: Denies: Headache ED EXAM, GENERAL - Physical Exam Exam: See Below Free Text/Narrative:: CONSTITUTIONAL: well appearing in no acute distress SKIN: Warm, dry, and intact without rash HENT: Normocephalic, atraumatic, PULMONARY: clear to ausculation bilaterally. No rales, rhonchi, wheezing CARDIOVASCULAR: regular rate, No murmur, rubs, or gallops GASTROINTESTINAL: soft, nondistended, nontender NEUROLOGIC: normal speech, II-XII intact. light touch/5/5 power equal and symmetric in upper and lower extremities without deficit MUSCULOSKELETAL: no gross deformities, atraumatic PSYCHIATRIC: normal mood and affect #1 Interpretation EKG Date: 03/02/21 Time: 14:28 EKG Interpretation Comments: 89, normal sinus rhythm with P AC, nonspecific ST/T findings Course - Vital Signs Text/Narrative:: ACS, pneumonia, pneumothorax, dissection, PE, musculoskeletal pain, other Patient presents with chest pain. Patient with a description that could be consistent with ACS. AG is nonspecific and first troponin negative. Patient's last angiogram was 9 years ago. Patient currently chest pain-free. admission for telemetry monitoring and serial cardiac enzymes. Patient also with some very minor creatinine elevation so this could consider to be evaluated here in the hospital or followed closely as an outpatient Last Recorded V/S: Last Vital Signs Temp 36.4 C 03/02/21 14:06 Pulse 88 03/02/21 14:06 Resp 18 03/02/21 14:06 BP 148/68 H 03/02/21 14:06 Pulse Ox 97 03/02/21 14:06 - Orders/Labs/Meds Orders: Active Orders 24 hr Category Date Time Status Admission Status [Patient Status] [ADT] Stat ADT 03/02/21 15:20 Ordered Cardiac Monitoring [RC] . DIRECTED Care 03/02/21 15:20 Ordered EKG 12 Lead [EKG Documentation Completion] [RC] STAT Care 03/02/21 14:24 Active Labs: Laboratory Tests 03/02/21 03/02/21 Range/Units 14:02 14:02 WBC 5.66 (4.0-11.0) K/uL RBC 4.66 (4.50-5.90) M/uL Hgb 14.5 (13.0-17.0) g/dL Hct 41.6 (38.0-50.0) % MCV 89.3 (80.0-98.0) fL MCH 31.1 (27.0-32.0) pg MCHC 34.9 (31.0-37.0) g/dL RDW Std Deviation 48.6 (28.0-62.0) fl RDW Coeff of Christopher 15 (11.0-15.0) % Plt Count 223 (150-400) K/uL MPV 10.30 (7.40-12.00) fL Neut % (Auto) 49.6 (48.0-80.0) % Lymph % (Auto) 35.9 (16.0-40.0) % [place] % (Auto) 12.0 (0.0-15.0) % Eos % (Auto) 2.1 (0.0-7.0) % Baso % (Auto) 0.4 (0.0-1.5) % Neut # (Auto) 2.8 (1.4-5.7) K/uL Lymph # (Auto) 2.0 (0.6-2.4) K/uL [place] # (Auto) 0.7 (0.0-0.8) K/uL Eos # (Auto) 0.1 (0.0-0.7) K/uL Baso # (Auto) 0.0 (0.0-0.1) K/uL Nucleated RBC % 0.0 /100WBC Nucleated RBCs # 0 K/uL Sodium 140 (136-148) mmol/L Potassium 3.9 (3.5-5.1) mmol/L Chloride 104 (98-107) mmol/L Carbon Dioxide 26.8 (21.0-32.0) mmol/L BUN 23 H (7.0-18.0) mg/dL Creatinine 1.6 H (0.8-1.3) mg/dL Est Cr Clr Drug Dosing 45.63 mL/min Estimated GFR (MDRD) 43.2 ml/min Glucose 121 H (74-106) mg/dL Calcium 8.7 (8.5-10.1) mg/dL Total Bilirubin 0.4 (0.2-1.0) mg/dL AST 19 (15-37) IU/L ALT 22 (14-63) IU/L Alkaline Phosphatase 125 H (46-116) U/L Troponin I < 0.050 (0.000-0.056) ng/mL Total Protein 8.0 (6.4-8.2) g/dL Albumin 3.9 (3.4-5.0) g/dL Globulin 4.1 H (2.6-4.0) g/dL Albumin/Globulin Ratio 1.0 (0.9-1.6) Meds: Medications Discontinued Medications Generic Name Dose Route Start Last Admin Trade Name Adam PRN Reason Stop Dose Admin Aspirin 324 mg 03/02/21 14:23 03/02/21 14:44 Aspirin 81 Mg Tab.Chew PO 03/02/21 14:24 324 mg ONETIME ONE Administration Departure - Departure Time of Disposition: 15:24 Disposition: Admitted As Inpatient 68 Condition: Good Clinical Impression: Chest pain Qualifiers: Chest pain type: unspecified Qualified Code(s): R07.9 - Chest pain, unspecified - Discharge Information Forms: ED Department Discharge Sepsis Event Note (ED) - Evaluation Sepsis Screening Result: No Definite Risk - Focused Exam Vital Signs: Vital Signs Temp Pulse Resp BP Pulse Ox 03/02/21 14:06 36.4 C 88 18 148/68 H 97 - My Orders Last 24 Hours: My Active Orders 03/02/21 14:24 EKG 12 Lead [EKG Documentation Completion] [RC] STAT 03/02/21 15:20 Admission Status [Patient Status] [ADT] Stat Cardiac Monitoring [RC] . DIRECTED - Assessment/Plan Last 24 Hours: My Active Orders 03/02/21 14:24 EKG 12 Lead [EKG Documentation Completion] [RC] STAT 03/02/21 15:20 Admission Status [Patient Status] [ADT] Stat Cardiac Monitoring [RC] . DIRECTED
[2021-03-02 14:47] LABS: BLOOD UREA NITROGEN,BUN 23 mg/dL (7.0-18.0); CARBON DIOXIDE,CO2 26.8 mmol/L (21.0-32.0); CHLORIDE,CL 104 mmol/L (98-107); GLUCOSE RANDOM 121 mg/dL (74-106); POTASSIUM,K 3.9 mmol/L (3.5-5.1); SODIUM,NA 140 mmol/L (136-148)
--- NOTE | 2021-03-02 15:03 | CR ---
INDICATION: Chest Pain TECHNIQUE: Chest radiograph 1 view COMPARISON: 10/24/2016 FINDINGS: Mediastinum: The mediastinum is normal in appearance. The heart silhouette is normal in size and morphology. Lung: Both lungs are unremarkable in appearance. No sign of pleural effusion seen. No pneumothorax is identified. Bone and Soft tissue: Unremarkable for age. IMPRESSION: 1. No acute cardiopulmonary disease is seen. Dictated by: Jesse Au MD @ 03/02/2021 15:02:12 (Electronically Signed)
--- NOTE | 2021-03-02 15:21 | PCM.HP.2 ---
<Josué Vo - Last Filed: 03/03/21 19:18> H&P History of Present Illness - General Date of Service: 03/02/21 Admit Problem/Dx: Admission Diagnosis/Problem Admission Diagnosis/Problem Chest pain - History of Present Illness Initial Comments - Free Text/Narative: PATIENT LEFT AMA FROM THE EMERGENCY ROOM PRIOR TO ARRIVING ON THE MED/SURG UNIT. - Related Data Allergies/Adverse Reactions: Allergies Allergy/AdvReac Type Severity Reaction Status Date / Time Sulfa (Sulfonamide Allergy Shortness Verified 03/02/21 14:05 Antibiotics) of Breath Home Medications: Home Meds Losartan [Cozaar] 50 mg PO BEDTIME 03/04/15 [History] amLODIPine Besylate [Amlodipine Besylate] 5 mg PO BEDTIME 03/04/15 [History] Aspirin 81 mg PO DAILY 03/02/21 [History] Past Medical History HEENT History: Reports: Other (See Below) Other HEENT History: wears glasses, top partial Cardiovascular History: Reports: Heart Murmur, Hypertension Other Cardiovascular History: murmur as a child Respiratory History: Reports: COPD Gastrointestinal History: Reports: Colon Polyp Genitourinary History: Reports: None Musculoskeletal History: Reports: Back Pain, Chronic Other Musculoskeletal History: spinal stenosis Neurological History: Reports: None Psychiatric History: Reports: None Endocrine/Metabolic History: Reports: Obesity/BMI 30+ Other Endocrine/Metabolic History: was told his right thyroid lobe was slighly enlarged Hematologic History: Reports: None Immunologic History: Reports: None Oncologic (Cancer) History: Reports: Squamous Cell Carcinoma Other Oncologic History: sarcoma Dermatologic History: Reports: None Other Dermatologic History: chronic right leg wound, 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 - Infectious Disease History Infectious Disease History: Reports: None - Past Surgical History Head Surgeries/Procedures: Reports: None HEENT Surgical History: Reports: None Cardiovascular Surgical History: Reports: None Respiratory Surgical History: Reports: None GI Surgical History: Reports: Cholecystectomy, Colonoscopy Male Surgical History: Reports: None Endocrine Surgical History: Reports: None Neurological Surgical History: Reports: Lumbar Spine Other Neurological Surgeries/Procedures: surgery for spinal stenosis Musculoskeletal Surgical History: Reports: None Oncologic Surgical History: Reports: Other (See Below) Other Oncologic Surgeries/Procedures: excision of myxofibrosarcoma-rt thigh Dermatological Surgical History: Reports: Skin Biopsy Social & Family History - Family History Family Medical History: No Pertinent Family History - Tobacco Use Tobacco Use Status *Q: Never Tobacco User - Caffeine Use Caffeine Use: Reports: None - Recreational Drug Use Recreational Drug Use: No Exam - Vital Signs Vital Signs: Last Vital Signs Temp 97.5 F 03/02/21 14:06 Pulse 88 03/02/21 14:06 Resp 18 03/02/21 14:06 BP 148/68 H 03/02/21 14:06 Pulse Ox 97 03/02/21 14:06 Weight: 86.183 kg - Patient Data Lab Results Last 24 hrs: Laboratory Results - last 24 hr 03/02/21 03/02/21 Range/Units 14:02 14:02 WBC 5.66 (4.0-11.0) K/uL RBC 4.66 (4.50-5.90) M/uL Hgb 14.5 (13.0-17.0) g/dL Hct 41.6 (38.0-50.0) % MCV 89.3 (80.0-98.0) fL MCH 31.1 (27.0-32.0) pg MCHC 34.9 (31.0-37.0) g/dL RDW Std Deviation 48.6 (28.0-62.0) fl RDW Coeff of Christopher 15 (11.0-15.0) % Plt Count 223 (150-400) K/uL MPV 10.30 (7.40-12.00) fL Neut % (Auto) 49.6 (48.0-80.0) % Lymph % (Auto) 35.9 (16.0-40.0) % [place] % (Auto) 12.0 (0.0-15.0) % Eos % (Auto) 2.1 (0.0-7.0) % Baso % (Auto) 0.4 (0.0-1.5) % Neut # (Auto) 2.8 (1.4-5.7) K/uL Lymph # (Auto) 2.0 (0.6-2.4) K/uL [place] # (Auto) 0.7 (0.0-0.8) K/uL Eos # (Auto) 0.1 (0.0-0.7) K/uL Baso # (Auto) 0.0 (0.0-0.1) K/uL Nucleated RBC % 0.0 /100WBC Nucleated RBCs # 0 K/uL Sodium 140 (136-148) mmol/L Potassium 3.9 (3.5-5.1) mmol/L Chloride 104 (98-107) mmol/L Carbon Dioxide 26.8 (21.0-32.0) mmol/L BUN 23 H (7.0-18.0) mg/dL Creatinine 1.6 H (0.8-1.3) mg/dL Est Cr Clr Drug Dosing 45.63 mL/min Estimated GFR (MDRD) 43.2 ml/min Glucose 121 H (74-106) mg/dL Calcium 8.7 (8.5-10.1) mg/dL Total Bilirubin 0.4 (0.2-1.0) mg/dL AST 19 (15-37) IU/L ALT 22 (14-63) IU/L Alkaline Phosphatase 125 H (46-116) U/L Troponin I < 0.050 (0.000-0.056) ng/mL Total Protein 8.0 (6.4-8.2) g/dL Albumin 3.9 (3.4-5.0) g/dL Globulin 4.1 H (2.6-4.0) g/dL Albumin/Globulin Ratio 1.0 (0.9-1.6) Result Diagrams: 03/02/21 14:02 03/02/21 14:02 Sepsis Event Note - Evaluation Sepsis Screening Result: No Definite Risk - Focused Exam Vital Signs: Vital Signs Temp Pulse Resp BP Pulse Ox 03/02/21 14:06 97.5 F 88 18 148/68 H 97 Orders Last 24hrs: Active Orders 24 hr Category Date Time Status Admission Status [Patient Status] [ADT] Stat ADT 03/02/21 15:20 Active Cardiac Monitoring [RC] . DIRECTED Care 03/02/21 15:20 Active EKG 12 Lead [EKG Documentation Completion] [RC] STAT Care 03/02/21 14:24 Active Assessment/Plan Comment:: PATIENT LEFT AMA FROM THE EMERGENCY ROOM PRIOR TO ARRIVING ON THE MED/SURG UNIT. WAS NOT ADMITTED <Rigoberto Crowley - Last Filed: 03/04/21 13:20> H&P History of Present Illness - General Admit Problem/Dx: Admission Diagnosis/Problem Admission Diagnosis/Problem Chest pain H&P Review of Systems - Review of Systems: Review Of Systems: See Below Exam - Exam Exam: Not Obtained - Vital Signs Vital Signs: Last Vital Signs Temp 36.4 C 03/02/21 14:06 Pulse 96 03/02/21 17:16 Resp 18 03/02/21 17:16 BP 116/77 03/02/21 17:16 Pulse Ox 96 03/02/21 17:16 - Patient Data Result Diagrams: 03/02/21 14:02 03/02/21 14:02 Problem List Initiated/Reviewed/Updated: No
--- NOTE | 2021-03-02 15:53 | PCM.HP.2 ---
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 Past medical history to include heart murmur, hypertension, COPD, back pain, squamous cell carcinoma. Admitted for ACS rule out EKG- 87, normal sinus rhythm with PAC, nonspecific ST/T findings Admitted for electronic parts salesperson, trops X3. ED pt given asprin 324mg. Chest x-ray impression to normal-sized heart silhouette, both lungs unremarkable in appearance, no pleural effusion or pneumothorax identified. - Related Data Allergies/Adverse Reactions: Allergies Allergy/AdvReac Type Severity Reaction Status Date / Time Sulfa (Sulfonamide Allergy Shortness Verified 03/02/21 14:05 Antibiotics) of Breath Home Medications: Home Meds Losartan [Cozaar] 50 mg PO BEDTIME 03/04/15 [History] amLODIPine Besylate [Amlodipine Besylate] 5 mg PO BEDTIME 03/04/15 [History] Aspirin 81 mg PO DAILY 03/02/21 [History] Past Medical History HEENT History: Reports: Other (See Below) Other HEENT History: wears glasses, top partial Cardiovascular History: Reports: Heart Murmur, Hypertension Other Cardiovascular History: murmur as a child Respiratory History: Reports: COPD Gastrointestinal History: Reports: Colon Polyp Genitourinary History: Reports: None Musculoskeletal History: Reports: Back Pain, Chronic Other Musculoskeletal History: spinal stenosis Neurological History: Reports: None Psychiatric History: Reports: None Endocrine/Metabolic History: Reports: Obesity/BMI 30+ Other Endocrine/Metabolic History: was told his right thyroid lobe was slighly enlarged Hematologic History: Reports: None Immunologic History: Reports: None Oncologic (Cancer) History: Reports: Squamous Cell Carcinoma Other Oncologic History: sarcoma Dermatologic History: Reports: None Other Dermatologic History: chronic right leg wound, 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 - Infectious Disease History Infectious Disease History: Reports: None - Past Surgical History Head Surgeries/Procedures: Reports: None HEENT Surgical History: Reports: None Cardiovascular Surgical History: Reports: None Respiratory Surgical History: Reports: None GI Surgical History: Reports: Cholecystectomy, Colonoscopy Male Surgical History: Reports: None Endocrine Surgical History: Reports: None Neurological Surgical History: Reports: Lumbar Spine Other Neurological Surgeries/Procedures: surgery for spinal stenosis Musculoskeletal Surgical History: Reports: None Oncologic Surgical History: Reports: Other (See Below) Other Oncologic Surgeries/Procedures: excision of myxofibrosarcoma-rt thigh Dermatological Surgical History: Reports: Skin Biopsy Social & Family History - Family History Family Medical History: No Pertinent Family History - Tobacco Use Tobacco Use Status *Q: Never Tobacco User - Caffeine Use Caffeine Use: Reports: None - Recreational Drug Use Recreational Drug Use: No Exam - Vital Signs Vital Signs: Last Vital Signs Temp 97.5 F 03/02/21 14:06 Pulse 88 03/02/21 14:06 Resp 18 03/02/21 14:06 BP 148/68 H 03/02/21 14:06 Pulse Ox 97 03/02/21 14:06 Weight: 190 lb - Patient Data Lab Results Last 24 hrs: Laboratory Results - last 24 hr 03/02/21 03/02/21 Range/Units 14:02 14:02 WBC 5.66 (4.0-11.0) K/uL RBC 4.66 (4.50-5.90) M/uL Hgb 14.5 (13.0-17.0) g/dL Hct 41.6 (38.0-50.0) % MCV 89.3 (80.0-98.0) fL MCH 31.1 (27.0-32.0) pg MCHC 34.9 (31.0-37.0) g/dL RDW Std Deviation 48.6 (28.0-62.0) fl RDW Coeff of Christopher 15 (11.0-15.0) % Plt Count 223 (150-400) K/uL MPV 10.30 (7.40-12.00) fL Neut % (Auto) 49.6 (48.0-80.0) % Lymph % (Auto) 35.9 (16.0-40.0) % [place] % (Auto) 12.0 (0.0-15.0) % Eos % (Auto) 2.1 (0.0-7.0) % Baso % (Auto) 0.4 (0.0-1.5) % Neut # (Auto) 2.8 (1.4-5.7) K/uL Lymph # (Auto) 2.0 (0.6-2.4) K/uL [place] # (Auto) 0.7 (0.0-0.8) K/uL Eos # (Auto) 0.1 (0.0-0.7) K/uL Baso # (Auto) 0.0 (0.0-0.1) K/uL Nucleated RBC % 0.0 /100WBC Nucleated RBCs # 0 K/uL Sodium 140 (136-148) mmol/L Potassium 3.9 (3.5-5.1) mmol/L Chloride 104 (98-107) mmol/L Carbon Dioxide 26.8 (21.0-32.0) mmol/L BUN 23 H (7.0-18.0) mg/dL Creatinine 1.6 H (0.8-1.3) mg/dL Est Cr Clr Drug Dosing 45.63 mL/min Estimated GFR (MDRD) 43.2 ml/min Glucose 121 H (74-106) mg/dL Calcium 8.7 (8.5-10.1) mg/dL Total Bilirubin 0.4 (0.2-1.0) mg/dL AST 19 (15-37) IU/L ALT 22 (14-63) IU/L Alkaline Phosphatase 125 H (46-116) U/L Troponin I < 0.050 (0.000-0.056) ng/mL Total Protein 8.0 (6.4-8.2) g/dL Albumin 3.9 (3.4-5.0) g/dL Globulin 4.1 H (2.6-4.0) g/dL Albumin/Globulin Ratio 1.0 (0.9-1.6) Result Diagrams: 03/02/21 14:02 03/02/21 14:02 Sepsis Event Note - Evaluation Sepsis Screening Result: No Definite Risk - Focused Exam Vital Signs: Vital Signs Temp Pulse Resp BP Pulse Ox 03/02/21 14:06 97.5 F 88 18 148/68 H 97 Orders Last 24hrs: Active Orders 24 hr Category Date Time Status Admission Status [Patient Status] [ADT] Stat ADT 03/02/21 15:20 Active Cardiac Monitoring [RC] . DIRECTED Care 03/02/21 15:20 Active EKG 12 Lead [EKG Documentation Completion] [RC] STAT Care 03/02/21 14:24 Active MAGNESIUM [CHEM] Stat Lab 03/02/21 14:02 Received TROPONIN I [CHEM] Stat Lab 03/02/21 18:00 Ordered TROPONIN I [CHEM] Stat Lab 03/02/21 22:00 Ordered
[2021-03-02 17:17] VITALS: BP 116/77; PULSE 96
== END 2021-03-02 17:16 | disposition critical access hospital (66) ==
LOC: MW.ED 13:57
DX: R07.9 Chest pain, unspecified (principal); J44.9 Chronic obstructive pulmonary disease, unspecified; I10 Essential (primary) hypertension; Z79.82 Long term (current) use of aspirin; Z88.2 Allergy status to sulfonamides
CPT/HCPCS: 36415; 71045; 80053; 83735; 84484; 85025; 93005; 99285; A9270

== ENCOUNTER 2022-07-01 07:36 | Inpatient (IN) | payer BC, MEDICARE ==
[2022-07-01] MEDS ORDERED: Sodium Chloride 0.9% 1,000 ML IV ONE (07:51)
[2022-07-01] MEDS ORDERED: Sodium Chloride 0.9% 10 ML Syringe FLUSH PRN ×2 (07:51→10:58)
[2022-07-01] MEDS ORDERED: Sodium Chloride 0.9% 2.5 ML Syringe FLUSH PRN ×2 (07:51→10:58)
[2022-07-01] MEDS ORDERED: Adenosine 6 MG/2 ML SDV IVPUSH ONE (07:53)
[2022-07-01] MEDS ORDERED: Diltiazem 50 MG/10 ML SDV IVPUSH ONE (08:23)
[2022-07-01] MEDS ORDERED: Diltiazem 25 MG/5 ML SDV ONE (08:26)
[2022-07-01] MEDS ORDERED: Diltiazem 25 MG/5 ML SDV IVPUSH ONE (08:28)
[2022-07-01] MEDS ORDERED: Diltiazem 100 MG in Sodium Chloride 0.9% 100 ML IV SCH ×2 (08:30→11:15)
[2022-07-01 08:52] LABS: BLOOD UREA NITROGEN,BUN 23 mg/dL (7.0-18.0); CARBON DIOXIDE,CO2 30.2 mmol/L (21.0-32.0); CHLORIDE,CL 107 mmol/L (98-107); GLUCOSE RANDOM 108 mg/dL (74-106); POTASSIUM,K 4.4 mmol/L (3.5-5.1); SODIUM,NA 145 mmol/L (136-148)
[2022-07-01 08:56] LABS: CORONAVIRUS COVID-19 NAA NEGATIVE (NEGATIVE); INFLUENZA A NAA NEGATIVE (NEGATIVE); INFLUENZA B NAA NEGATIVE (NEGATIVE); RESPIRATORY SYNCYTIAL VIR NAA NEGATIVE (NEGATIVE)
[2022-07-01 09:01] LABS: ESTIMATED GFR 46 mL/min (>60)
[2022-07-01] MEDS ORDERED: Acetaminophen 325 MG Tab PO PRN (10:58)
[2022-07-01] MEDS ORDERED: Magnesium Sulfate/Water 2 GM in Premix Bag 1 BAG IV ONE (10:58)
[2022-07-01] MEDS ORDERED: Ondansetron 4 MG/2 ML SDV IVPUSH PRN (10:58)
[2022-07-01] MEDS ORDERED: Digoxin 500 MCG/2 ML Amp IVPUSH SCH (11:15)
[2022-07-01] MEDS: Enoxaparin 100 MG/1 ML Syringe SUBCUT SCH ×2 (11:57→23:19)
[2022-07-01] MEDS: Diltiazem IR 30 MG Tab PO SCH ×3 (14:09→23:19)
[2022-07-02] MEDS: Diltiazem IR 30 MG Tab PO SCH (05:08)
[2022-07-02 07:05] LABS: CARBON DIOXIDE,CO2 25.3 mmol/L (21.0-32.0); POTASSIUM,K 4.2 mmol/L (3.5-5.1)
[2022-07-02] MEDS ORDERED: Diltiazem 120 MG Cap.CD PO SCH (09:00)
[2022-07-02 09:27] VITALS: PULSE 68
[2022-07-02] MEDS ORDERED: Albuterol/Ipratropium 3.0-0.5 MG/3 ML Neb Soln NEB ONE (09:57)
[2022-07-02] MEDS ORDERED: Apixaban 5 MG Tab PO SCH (10:00)
[2022-07-02 11:46] VITALS: BP 117/68
== END 2022-07-02 11:35 | disposition home or self-care (01) | DRG 201 ==
LOC: MW.ED 07:36 → MW.ICU 09:41
PROVIDERS: ADMIT Internal Medicine; ATTEND Internal Medicine
DX: I48.92 Unspecified atrial flutter (principal); N18.1 Chronic kidney disease, stage 1; J44.9 Chronic obstructive pulmonary disease, unspecified; Z20.822 Contact with and (suspected) exposure to COVID-19; F17.210 Nicotine dependence, cigarettes, uncomplicated; I12.9 Hypertensive chronic kidney disease with stage 1 through stage 4 chronic kidney disease, or unspecified chronic kidney disease; E66.9 Obesity, unspecified; Z86.010 Personal history of colon polyps; Z90.49 Acquired absence of other specified parts of digestive tract; Z68.32 Body mass index [BMI] 32.0-32.9, adult; Z79.01 Long term (current) use of anticoagulants; Z88.2 Allergy status to sulfonamides; Z97.3 Presence of spectacles and contact lenses
CPT/HCPCS: 0241U; 36415; 71045; 71045-26; 80048; 80053; 80305-QW; 80307; 81001; 83735; 84443; 84484; 85025; 85379; 85610; 85730; 93005; 93306; 96361; 96374; 96375; 99285-25; A9270-GY; J0153; J1650; J3475; J3490; J7030; J7620-GY

== ENCOUNTER 2022-09-12 10:00 | Emergency (ER) | payer OTHER, BC ==
[2022-09-12 12:33] VITALS: BP 133/87; PULSE 68
== END 2022-09-12 12:28 | disposition home or self-care (01) ==
LOC: MW.ED 10:00
DX: S60.212A Contusion of left wrist, initial encounter (principal); Z88.2 Allergy status to sulfonamides; W00.0XXA Fall on same level due to ice and snow, initial encounter
CPT/HCPCS: 73030-26-LT; 73030-LT; 73110-26-LT; 73110-LT; 99283

== ENCOUNTER 2022-10-14 10:38 | Emergency (ER) | payer OTHER, BC ==
[2022-10-14 10:45] VITALS: BP 187/105; PULSE 79
== END 2022-10-14 12:33 | disposition home or self-care (01) ==
LOC: MW.ED 10:38
DX: S01.01XA Laceration without foreign body of scalp, initial encounter (principal); I10 Essential (primary) hypertension; J44.9 Chronic obstructive pulmonary disease, unspecified; E66.9 Obesity, unspecified; Z68.32 Body mass index [BMI] 32.0-32.9, adult; Z88.2 Allergy status to sulfonamides; Z79.01 Long term (current) use of anticoagulants; Z79.899 Other long term (current) drug therapy; W00.0XXA Fall on same level due to ice and snow, initial encounter
CPT/HCPCS: 12001; 70450; 70450-26; 72125; 72125-26; 99283

== ENCOUNTER 2022-10-24 09:31 | Emergency (ER) | payer BC, OTHER ==
[2022-10-24 09:43] VITALS: BP 148/90; PULSE 72
== END 2022-10-24 09:44 | disposition left against medical advice (07) ==
LOC: MW.ED 09:31
DX: S01.01XD Laceration without foreign body of scalp, subsequent encounter (principal); Z48.02 Encounter for removal of sutures; W00.0XXD Fall on same level due to ice and snow, subsequent encounter

== ENCOUNTER 2023-10-21 03:59 | Observation (INO) | payer MEDICARE ==
[2023-10-21] MEDS: Sodium Chloride 0.9% 10 ML Syringe FLUSH PRN (04:13)
[2023-10-21] MEDS: Sodium Chloride 0.9% 2.5 ML Syringe FLUSH PRN (04:13)
[2023-10-21 04:15] LABS: BASOPHILS ABSOLUTE AUTO 0.04 K/uL (0.00-0.20); BASOPHILS PERCENT AUTO 0.5 % (0.0-1.0); EOSINOPHILS PERCENT AUTO 1.3 % (0.0-6.0); HEMATOCRIT 36.3 % (42.0-52.0); HEMOGLOBIN 12.6 g/dL (14.0-18.0); IMMATURE GRAN ABSOLUTE AUTO 0.01 K/uL (0.00-0.05); IMMATURE GRAN PERCENT AUTO 0.1 % (0.0-0.4); LYMPHOCYTES ABSOLUTE AUTO 2.48 K/uL (1.00-4.80); LYMPHOCYTES PERCENT AUTO 32.4 % (24.0-44.0); MEAN CORPUSCULAR HEMOGLOBIN 30.5 pg (28.0-32.0); MEAN CORPUSCULAR HGB CONC 34.7 g/dL (32.0-36.0); MEAN CORPUSCULAR VOLUME 87.9 fL (83.0-99.0); MEAN PLATELET VOLUME 11.1 fL (9.4-12.4); MONOCYTES ABSOLUTE AUTO 0.77 K/uL (0.00-0.80); MONOCYTES PERCENT AUTO 10.1 % (0.0-8.0); NEUTROPHILS ABSOLUTE AUTO 4.25 K/uL (1.80-7.70); NEUTROPHILS PERCENT AUTO 55.6 % (41.0-71.0); PLATELET COUNT,PLT 205 K/uL (150-400); RED BLOOD CELL COUNT 4.13 M/uL (4.52-5.90); WHITE BLOOD CELL COUNT,WBC 7.65 K/uL (3.9-11.3)
[2023-10-21 04:42] LABS: A/G RATIO 0.6 (0.9-1.6); ALBUMIN 2.9 g/dL (3.4-5.0); BILIRUBIN TOTAL 0.4 mg/dL (0.2-1.0); CALCIUM 9.2 mg/dL (8.5-10.1); CARBON DIOXIDE,CO2 26.3 mmol/L (21.0-32.0); EST CRCL DRUG DOSING (CG) 31.67 mL/min; POTASSIUM,K 2.7 mmol/L (3.5-5.1); PROTEIN TOTAL,TP 7.4 g/dL (6.4-8.2)
[2023-10-21] MEDS: Potassium Chloride 20 MEQ Tab.ER PO ONE ×4 (05:06→17:22)
[2023-10-21] MEDS: Aspirin 325 MG Tab PO ONE (05:06)
[2023-10-21 05:57] LABS: MAGNESIUM 1.8 mg/dL (1.8-2.4)
[2023-10-21] MEDS ORDERED: Magnesium Sulfate (4.06 MEQ/ML) 5 GM/10 ML SDV IV ONE (06:00)
[2023-10-21] MEDS: Magnesium Sulfate/Water 50 ML IV ONE (06:07)
[2023-10-21] MEDS ORDERED: Sodium Chloride 0.9% 2.5 ML Syringe FLUSH PRN (08:13)
[2023-10-21] MEDS ORDERED: Docusate Sodium 100 MG Cap PO PRN (08:13)
[2023-10-21] MEDS ORDERED: Acetaminophen 325 MG Tab PO PRN (08:13)
[2023-10-21] MEDS ORDERED: Sodium Chloride 0.9% 10 ML Syringe FLUSH PRN (08:13)
[2023-10-21] MEDS ORDERED: Ondansetron 4 MG/2 ML SDV IVPUSH PRN (08:13)
[2023-10-21] MEDS ORDERED: CHOLESTYRAMINE PO PRN (08:22)
[2023-10-21] MEDS ORDERED: SUCROSE PO PRN (08:22)
[2023-10-21] MEDS: Multivitamin Tab PO SCH (08:33)
[2023-10-21] MEDS: Apixaban 5 MG Tab PO SCH (08:33)
[2023-10-21 10:05] LABS: CALCIUM 8.9 mg/dL (8.5-10.1); CARBON DIOXIDE,CO2 23.2 mmol/L (21.0-32.0); CREATININE 1.9 mg/dL (0.8-1.3); EST CRCL DRUG DOSING (CG) 33.34 mL/min; POTASSIUM,K 3.1 mmol/L (3.5-5.1)
[2023-10-21] MEDS: Furosemide 40 MG/4 ML VIAL IVPUSH ONE ×2 (11:34→17:38)
[2023-10-21] MEDS: Albuterol/Ipratropium 3.0-0.5 MG/3 ML Neb Soln NEB PRN (13:38)
[2023-10-21] MEDS: Carvedilol 12.5 MG Tab PO SCH (16:07)
[2023-10-22 05:56] LABS: BASOPHILS ABSOLUTE AUTO 0.05 K/uL (0.00-0.20); BASOPHILS PERCENT AUTO 0.7 % (0.0-1.0); EOSINOPHILS ABSOLUTE AUTO 0.09 K/uL (0.00-0.45); EOSINOPHILS PERCENT AUTO 1.3 % (0.0-6.0); HEMATOCRIT 36.4 % (42.0-52.0); HEMOGLOBIN 12.6 g/dL (14.0-18.0); IMMATURE GRAN ABSOLUTE AUTO 0.01 K/uL (0.00-0.05); IMMATURE GRAN PERCENT AUTO 0.1 % (0.0-0.4); LYMPHOCYTES ABSOLUTE AUTO 2.11 K/uL (1.00-4.80); LYMPHOCYTES PERCENT AUTO 30.8 % (24.0-44.0); MEAN CORPUSCULAR HEMOGLOBIN 29.9 pg (28.0-32.0); MEAN CORPUSCULAR HGB CONC 34.6 g/dL (32.0-36.0); MEAN CORPUSCULAR VOLUME 86.5 fL (83.0-99.0); MEAN PLATELET VOLUME 11.3 fL (9.4-12.4); MONOCYTES ABSOLUTE AUTO 0.77 K/uL (0.00-0.80); MONOCYTES PERCENT AUTO 11.2 % (0.0-8.0); NEUTROPHILS ABSOLUTE AUTO 3.82 K/uL (1.80-7.70); NEUTROPHILS PERCENT AUTO 55.9 % (41.0-71.0); PLATELET COUNT,PLT 211 K/uL (150-400); RED BLOOD CELL COUNT 4.21 M/uL (4.52-5.90); WHITE BLOOD CELL COUNT,WBC 6.85 K/uL (3.9-11.3)
[2023-10-22 06:19] LABS: CALCIUM 9.3 mg/dL (8.5-10.1); CARBON DIOXIDE,CO2 27.2 mmol/L (21.0-32.0); EST CRCL DRUG DOSING (CG) 31.67 mL/min; MAGNESIUM 1.8 mg/dL (1.8-2.4); POTASSIUM,K 3.5 mmol/L (3.5-5.1)
[2023-10-22] MEDS: Furosemide 40 MG/4 ML VIAL IVPUSH SCH (08:21)
[2023-10-22] MEDS: Potassium Chloride 20 MEQ Tab.ER PO ONE (09:08)
[2023-10-22 10:32] VITALS: BP 121/74; PULSE 68
== END 2023-10-22 11:00 | disposition home or self-care (01) ==
LOC: MW.ED 03:59 → MW.MS 06:13
PROVIDERS: ADMIT Internal Medicine; ATTEND Internal Medicine
DX: I13.0 Hypertensive heart and chronic kidney disease with heart failure and stage 1 through stage 4 chronic kidney disease, or unspecified chronic kidney disease (principal); I50.9 Heart failure, unspecified; N18.9 Chronic kidney disease, unspecified; I48.92 Unspecified atrial flutter; J44.9 Chronic obstructive pulmonary disease, unspecified; C49.9 Malignant neoplasm of connective and soft tissue, unspecified; E87.6 Hypokalemia; Z79.01 Long term (current) use of anticoagulants; Z79.899 Other long term (current) drug therapy; Z88.2 Allergy status to sulfonamides
CPT/HCPCS: 36415; 71046; 80048; 80053; 83735; 83880; 84132; 84484; 85025; 85379; 93005; 93306; 96365; 96366; 96375; 96376; 99285; A9270; G0378; J1940; J3475; J3490; 93010; 99223; 99238; J7620-GY

== ENCOUNTER 2023-12-08 10:09 | Inpatient (IN) | payer MEDICARE ==
[2023-12-08 10:46] LABS: BASOPHILS ABSOLUTE AUTO 0.02 K/uL (0.00-0.20); BASOPHILS PERCENT AUTO 0.2 % (0.0-1.0); HEMATOCRIT 38.4 % (42.0-52.0); HEMOGLOBIN 13.7 g/dL (14.0-18.0); IMMATURE GRAN ABSOLUTE AUTO 0.02 K/uL (0.00-0.05); IMMATURE GRAN PERCENT AUTO 0.2 % (0.0-0.4); LYMPHOCYTES PERCENT AUTO 14.7 % (24.0-44.0); MEAN CORPUSCULAR HEMOGLOBIN 30.4 pg (28.0-32.0); MEAN CORPUSCULAR HGB CONC 35.7 g/dL (32.0-36.0); MEAN CORPUSCULAR VOLUME 85.3 fL (83.0-99.0); MEAN PLATELET VOLUME 10.4 fL (9.4-12.4); MONOCYTES ABSOLUTE AUTO 0.89 K/uL (0.00-0.80); MONOCYTES PERCENT AUTO 8.2 % (0.0-8.0); NEUTROPHILS ABSOLUTE AUTO 8.38 K/uL (1.80-7.70); NEUTROPHILS PERCENT AUTO 76.7 % (41.0-71.0); PLATELET COUNT,PLT 205 K/uL (150-400); WHITE BLOOD CELL COUNT,WBC 10.91 K/uL (3.9-11.3)
[2023-12-08] MEDS: Sodium Chloride 0.9% 1,000 ML IV ONE (10:48)
[2023-12-08 11:23] LABS: A/G RATIO 0.5 (0.9-1.6); ALBUMIN 2.4 g/dL (3.4-5.0); BILIRUBIN TOTAL 0.6 mg/dL (0.2-1.0); CALCIUM 8.7 mg/dL (8.5-10.1); CARBON DIOXIDE,CO2 24.4 mmol/L (21.0-32.0); CREATININE 2.9 mg/dL (0.8-1.3); EST CRCL DRUG DOSING (CG) 21.84 mL/min; PROTEIN TOTAL,TP 7.4 g/dL (6.4-8.2)
[2023-12-08 11:35] LABS: POTASSIUM,K 2.1 mmol/L (3.5-5.1)
[2023-12-08] MEDS: NS with KCl 40mEq 1,000 ML IV SCH (12:43)
[2023-12-08] MEDS: Potassium Chloride 20 MEQ Tab.ER PO ONE (12:54)
[2023-12-08] MEDS: Potassium Chloride 10% 20 MEQ/15 ML Soln 15 ML UD Cup PO SCH (13:08)
[2023-12-08] MEDS: Magnesium Sulfate/Water 2 GM in Premix Bag 1 BAG IV ONE (13:08)
[2023-12-08] MEDS ORDERED: Acetaminophen 325 MG Tab PO PRN (16:18)
[2023-12-08] MEDS ORDERED: Ondansetron 4 MG Tab.DIS PO PRN (16:18)
[2023-12-08 17:34] LABS: CALCIUM 8.6 mg/dL (8.5-10.1); CARBON DIOXIDE,CO2 25.1 mmol/L (21.0-32.0); CREATININE 2.7 mg/dL (0.8-1.3); EST CRCL DRUG DOSING (CG) 23.46 mL/min; MAGNESIUM 2.3 mg/dL (1.8-2.4)
[2023-12-08 17:35] LABS: POTASSIUM,K 2.4 mmol/L (3.5-5.1)
[2023-12-08] MEDS: Sodium Chloride 0.9% 500 ML IV ONE (18:09)
[2023-12-08] MEDS: Potassium Chloride 10 MEQ in Premix Bag 1 BAG IV SCH (18:10)
[2023-12-08] MEDS: Potassium Chloride 10% 20 MEQ/15 ML Soln 15 ML UD Cup PO ONE (18:10)
[2023-12-08] MEDS: Apixaban 5 MG Tab PO SCH (20:18)
[2023-12-08] MEDS: Vancomycin 125 MG Cap PO SCH (20:18)
[2023-12-08] MEDS: Loperamide 2 MG Cap PO PRN (23:07)
[2023-12-09 06:07] LABS: BASOPHILS ABSOLUTE AUTO 0.02 K/uL (0.00-0.20); BASOPHILS PERCENT AUTO 0.2 % (0.0-1.0); EOSINOPHILS ABSOLUTE AUTO 0.02 K/uL (0.00-0.45); EOSINOPHILS PERCENT AUTO 0.2 % (0.0-6.0); HEMATOCRIT 36.4 % (42.0-52.0); HEMOGLOBIN 12.7 g/dL (14.0-18.0); IMMATURE GRAN ABSOLUTE AUTO 0.03 K/uL (0.00-0.05); IMMATURE GRAN PERCENT AUTO 0.3 % (0.0-0.4); LYMPHOCYTES ABSOLUTE AUTO 1.46 K/uL (1.00-4.80); LYMPHOCYTES PERCENT AUTO 14.5 % (24.0-44.0); MEAN CORPUSCULAR HGB CONC 34.9 g/dL (32.0-36.0); MEAN CORPUSCULAR VOLUME 85.8 fL (83.0-99.0); MEAN PLATELET VOLUME 10.9 fL (9.4-12.4); MONOCYTES ABSOLUTE AUTO 0.68 K/uL (0.00-0.80); MONOCYTES PERCENT AUTO 6.8 % (0.0-8.0); NEUTROPHILS ABSOLUTE AUTO 7.86 K/uL (1.80-7.70); PLATELET COUNT,PLT 191 K/uL (150-400); RED BLOOD CELL COUNT 4.24 M/uL (4.52-5.90); WHITE BLOOD CELL COUNT,WBC 10.07 K/uL (3.9-11.3)
[2023-12-09 06:34] LABS: A/G RATIO 0.5 (0.9-1.6); ALBUMIN 2.3 g/dL (3.4-5.0); BILIRUBIN TOTAL 0.5 mg/dL (0.2-1.0); CALCIUM 8.4 mg/dL (8.5-10.1); CARBON DIOXIDE,CO2 19.6 mmol/L (21.0-32.0); CREATININE 2.6 mg/dL (0.8-1.3); EST CRCL DRUG DOSING (CG) 24.36 mL/min
[2023-12-09 06:36] LABS: POTASSIUM,K 2.4 mmol/L (3.5-5.1)
[2023-12-09] MEDS: Potassium Chloride 10 MEQ in Premix Bag 1 BAG IV SCH ×2 (08:54→15:27)
[2023-12-09] MEDS: Sodium Chloride 0.9% 500 ML IV ONE (08:55)
[2023-12-09] MEDS: Potassium Chloride 10% 20 MEQ/15 ML Soln 15 ML UD Cup PO ONE (09:02)
[2023-12-09] MEDS: Carvedilol 3.125 MG Tab PO SCH ×2 (14:18→22:40)
[2023-12-09 14:24] LABS: CALCIUM 8.2 mg/dL (8.5-10.1); CREATININE 2.7 mg/dL (0.8-1.3); EST CRCL DRUG DOSING (CG) 23.46 mL/min; POTASSIUM,K 3.5 mmol/L (3.5-5.1)
[2023-12-09] MEDS: Carvedilol 6.25 MG Tab PO SCH (14:27)
[2023-12-09] MEDS: Sodium Chloride 0.9% 250 ML IV ONE (15:28)
[2023-12-10 06:11] LABS: BASOPHILS ABSOLUTE AUTO 0.02 K/uL (0.00-0.20); BASOPHILS PERCENT AUTO 0.3 % (0.0-1.0); EOSINOPHILS ABSOLUTE AUTO 0.02 K/uL (0.00-0.45); EOSINOPHILS PERCENT AUTO 0.3 % (0.0-6.0); HEMOGLOBIN 12.3 g/dL (14.0-18.0); IMMATURE GRAN ABSOLUTE AUTO 0.02 K/uL (0.00-0.05); IMMATURE GRAN PERCENT AUTO 0.3 % (0.0-0.4); LYMPHOCYTES ABSOLUTE AUTO 1.86 K/uL (1.00-4.80); LYMPHOCYTES PERCENT AUTO 23.7 % (24.0-44.0); MEAN CORPUSCULAR HEMOGLOBIN 30.5 pg (28.0-32.0); MEAN CORPUSCULAR HGB CONC 35.1 g/dL (32.0-36.0); MEAN CORPUSCULAR VOLUME 86.8 fL (83.0-99.0); MEAN PLATELET VOLUME 10.9 fL (9.4-12.4); MONOCYTES ABSOLUTE AUTO 0.63 K/uL (0.00-0.80); NEUTROPHILS ABSOLUTE AUTO 5.31 K/uL (1.80-7.70); NEUTROPHILS PERCENT AUTO 67.4 % (41.0-71.0); PLATELET COUNT,PLT 184 K/uL (150-400); RED BLOOD CELL COUNT 4.03 M/uL (4.52-5.90); WHITE BLOOD CELL COUNT,WBC 7.86 K/uL (3.9-11.3)
[2023-12-10 06:47] LABS: A/G RATIO 0.5 (0.9-1.6); ALBUMIN 2.2 g/dL (3.4-5.0); BILIRUBIN TOTAL 0.5 mg/dL (0.2-1.0); CREATININE 2.4 mg/dL (0.8-1.3); EST CRCL DRUG DOSING (CG) 26.39 mL/min; POTASSIUM,K 2.7 mmol/L (3.5-5.1); PROTEIN TOTAL,TP 7.1 g/dL (6.4-8.2)
[2023-12-10] MEDS: Potassium Chloride 10% 20 MEQ/15 ML Soln 15 ML UD Cup PO ONE (09:06)
[2023-12-10] MEDS: Potassium Chloride 20 MEQ Tab.ER PO ONE (09:06)
[2023-12-10] MEDS: Potassium Chloride 10 MEQ in Premix Bag 1 BAG IV SCH (09:07)
[2023-12-10 12:54] VITALS: BP 109/64; PULSE 77
== END 2023-12-10 13:30 | disposition home or self-care (01) | DRG 372 ==
LOC: MW.ED 10:09 → MW.MS 13:40 → OBSVTOIN 12-09 09:22
PROVIDERS: ADMIT Family Medicine; ATTEND Family Medicine
DX: A04.72 Enterocolitis due to Clostridium difficile, not specified as recurrent (principal); N17.9 Acute kidney failure, unspecified; E87.6 Hypokalemia; Z66 Do not resuscitate; I50.9 Heart failure, unspecified; N18.9 Chronic kidney disease, unspecified; I48.91 Unspecified atrial fibrillation; J44.9 Chronic obstructive pulmonary disease, unspecified; E66.9 Obesity, unspecified; R19.7 Diarrhea, unspecified; M48.00 Spinal stenosis, site unspecified; I25.10 Atherosclerotic heart disease of native coronary artery without angina pectoris; E86.0 Dehydration; Z88.2 Allergy status to sulfonamides; Z79.01 Long term (current) use of anticoagulants; Z79.899 Other long term (current) drug therapy; Z86.010 Personal history of colon polyps; Z68.28 Body mass index [BMI] 28.0-28.9, adult; Z90.49 Acquired absence of other specified parts of digestive tract; Z98.890 Other specified postprocedural states
CPT/HCPCS: 36415 ×2; 71046; 80048; 80053 ×2; 83735 ×2; 83880; 84100; 85025 ×2; 87324; 93005; A9270 ×10; J3475; J3480 ×6; J7030; J7040 ×2; 93010; 96361; 96365; 96366; 96368; 96376; 97161-GP; 99283; 99285-25; G0378; J7050

== ENCOUNTER 2024-02-03 08:14 | Inpatient (IN) | payer MEDICARE ==
[2024-02-03] MEDS: Sodium Chloride 0.9% 2.5 ML Syringe FLUSH PRN (08:31)
[2024-02-03] MEDS: Albuterol/Ipratropium 3.0-0.5 MG/3 ML Neb Soln NEB ONE (08:31)
[2024-02-03] MEDS: Sodium Chloride 0.9% 10 ML Syringe FLUSH PRN (08:31)
[2024-02-03 08:51] LABS: BASOPHILS ABSOLUTE AUTO 0.03 K/uL (0.00-0.20); BASOPHILS PERCENT AUTO 0.4 % (0.0-1.0); EOSINOPHILS ABSOLUTE AUTO 0.12 K/uL (0.00-0.45); EOSINOPHILS PERCENT AUTO 1.6 % (0.0-6.0); HEMATOCRIT 35.7 % (42.0-52.0); IMMATURE GRAN ABSOLUTE AUTO 0.01 K/uL (0.00-0.05); IMMATURE GRAN PERCENT AUTO 0.1 % (0.0-0.4); LYMPHOCYTES ABSOLUTE AUTO 1.92 K/uL (1.00-4.80); LYMPHOCYTES PERCENT AUTO 25.4 % (24.0-44.0); MEAN CORPUSCULAR HEMOGLOBIN 29.9 pg (28.0-32.0); MEAN CORPUSCULAR HGB CONC 33.6 g/dL (32.0-36.0); MEAN PLATELET VOLUME 11.2 fL (9.4-12.4); MONOCYTES ABSOLUTE AUTO 0.73 K/uL (0.00-0.80); MONOCYTES PERCENT AUTO 9.7 % (0.0-8.0); NEUTROPHILS ABSOLUTE AUTO 4.75 K/uL (1.80-7.70); NEUTROPHILS PERCENT AUTO 62.8 % (41.0-71.0); PLATELET COUNT,PLT 250 K/uL (150-400); RED BLOOD CELL COUNT 4.01 M/uL (4.52-5.90); WHITE BLOOD CELL COUNT,WBC 7.56 K/uL (3.9-11.3)
[2024-02-03 09:07] LABS: D-DIMER QUANTITATIVE 1.81 mg/L FEU (0.00-0.50); PTT,PARTIAL THROMBOPLSTIN TIME 28.1 SEC (23.9-30.7)
[2024-02-03 09:19] LABS: A/G RATIO 0.6 (0.9-1.6); ALBUMIN 2.5 g/dL (3.4-5.0); BILIRUBIN TOTAL 0.5 mg/dL (0.2-1.0); CALCIUM 8.3 mg/dL (8.5-10.1); CARBON DIOXIDE,CO2 25.1 mmol/L (21.0-32.0); CREATININE 2.5 mg/dL (0.8-1.3); EST CRCL DRUG DOSING (CG) 25.34 mL/min; MAGNESIUM 1.3 mg/dL (1.8-2.4); PHOSPHORUS 3.5 mg/dL (2.6-4.7); POTASSIUM,K 4.2 mmol/L (3.5-5.1); PROTEIN TOTAL,TP 6.8 g/dL (6.4-8.2)
[2024-02-03] MEDS: Magnesium Sulfate/Water 2 GM in Premix Bag 1 BAG IV ONE ×2 (10:08→14:10)
[2024-02-03] MEDS: Furosemide 40 MG/4 ML VIAL IVPUSH ONE (11:44)
[2024-02-03] MEDS: Acetaminophen 500 MG Tab PO ONE (12:02)
[2024-02-03] MEDS ORDERED: Ondansetron 4 MG Tab.DIS PO PRN (12:39)
[2024-02-03] MEDS ORDERED: Sennosides/Docusate Sodium 50-8.6 MG Tab PO PRN (12:39)
[2024-02-03] MEDS ORDERED: Polyethylene Glycol 3350 Powder 17 GM Packet PO PRN (12:39)
[2024-02-03] MEDS: Acetaminophen 325 MG Tab PO PRN (17:16)
[2024-02-03] MEDS: Furosemide 40 MG/4 ML VIAL IVPUSH SCH (17:19)
[2024-02-03] MEDS: Apixaban 5 MG Tab PO SCH (20:57)
[2024-02-04 05:31] LABS: BASOPHILS ABSOLUTE AUTO 0.03 K/uL (0.00-0.20); BASOPHILS PERCENT AUTO 0.4 % (0.0-1.0); EOSINOPHILS ABSOLUTE AUTO 0.18 K/uL (0.00-0.45); EOSINOPHILS PERCENT AUTO 2.3 % (0.0-6.0); HEMOGLOBIN 11.9 g/dL (14.0-18.0); IMMATURE GRAN ABSOLUTE AUTO 0.02 K/uL (0.00-0.05); IMMATURE GRAN PERCENT AUTO 0.3 % (0.0-0.4); LYMPHOCYTES ABSOLUTE AUTO 1.93 K/uL (1.00-4.80); LYMPHOCYTES PERCENT AUTO 25.2 % (24.0-44.0); MEAN CORPUSCULAR HEMOGLOBIN 29.5 pg (28.0-32.0); MEAN CORPUSCULAR HGB CONC 33.1 g/dL (32.0-36.0); MEAN CORPUSCULAR VOLUME 89.3 fL (83.0-99.0); MEAN PLATELET VOLUME 11.1 fL (9.4-12.4); MONOCYTES ABSOLUTE AUTO 0.71 K/uL (0.00-0.80); MONOCYTES PERCENT AUTO 9.3 % (0.0-8.0); NEUTROPHILS PERCENT AUTO 62.5 % (41.0-71.0); PLATELET COUNT,PLT 224 K/uL (150-400); RED BLOOD CELL COUNT 4.03 M/uL (4.52-5.90); WHITE BLOOD CELL COUNT,WBC 7.67 K/uL (3.9-11.3)
[2024-02-04 06:07] LABS: A/G RATIO 0.6 (0.9-1.6); ALBUMIN 2.4 g/dL (3.4-5.0); BILIRUBIN TOTAL 0.6 mg/dL (0.2-1.0); CALCIUM 8.3 mg/dL (8.5-10.1); CARBON DIOXIDE,CO2 23.1 mmol/L (21.0-32.0); CREATININE 2.5 mg/dL (0.8-1.3); EST CRCL DRUG DOSING (CG) 25.34 mL/min; MAGNESIUM 1.5 mg/dL (1.8-2.4); POTASSIUM,K 3.9 mmol/L (3.5-5.1); PROTEIN TOTAL,TP 6.7 g/dL (6.4-8.2)
[2024-02-04] MEDS: Metoprolol Succinate 25 MG Tab.ER PO SCH (08:15)
[2024-02-04] MEDS: Pantoprazole 40 MG Tab.CR PO SCH (08:18)
[2024-02-04] MEDS: Magnesium Sulfate/Water 2 GM in Premix Bag 1 BAG IV ONE (08:56)
[2024-02-05 05:52] LABS: BASOPHILS ABSOLUTE AUTO 0.04 K/uL (0.00-0.20); BASOPHILS PERCENT AUTO 0.7 % (0.0-1.0); EOSINOPHILS ABSOLUTE AUTO 0.16 K/uL (0.00-0.45); EOSINOPHILS PERCENT AUTO 2.6 % (0.0-6.0); HEMATOCRIT 36.6 % (42.0-52.0); HEMOGLOBIN 12.3 g/dL (14.0-18.0); IMMATURE GRAN ABSOLUTE AUTO 0.01 K/uL (0.00-0.05); IMMATURE GRAN PERCENT AUTO 0.2 % (0.0-0.4); LYMPHOCYTES ABSOLUTE AUTO 1.91 K/uL (1.00-4.80); LYMPHOCYTES PERCENT AUTO 31.5 % (24.0-44.0); MEAN CORPUSCULAR HEMOGLOBIN 29.7 pg (28.0-32.0); MEAN CORPUSCULAR HGB CONC 33.6 g/dL (32.0-36.0); MEAN CORPUSCULAR VOLUME 88.4 fL (83.0-99.0); MEAN PLATELET VOLUME 10.7 fL (9.4-12.4); MONOCYTES PERCENT AUTO 9.9 % (0.0-8.0); NEUTROPHILS ABSOLUTE AUTO 3.34 K/uL (1.80-7.70); NEUTROPHILS PERCENT AUTO 55.1 % (41.0-71.0); PLATELET COUNT,PLT 224 K/uL (150-400); RED BLOOD CELL COUNT 4.14 M/uL (4.52-5.90); WHITE BLOOD CELL COUNT,WBC 6.06 K/uL (3.9-11.3)
[2024-02-05 06:19] LABS: A/G RATIO 0.6 (0.9-1.6); ALBUMIN 2.5 g/dL (3.4-5.0); BILIRUBIN TOTAL 0.6 mg/dL (0.2-1.0); CALCIUM 8.7 mg/dL (8.5-10.1); CARBON DIOXIDE,CO2 24.7 mmol/L (21.0-32.0); CREATININE 2.8 mg/dL (0.8-1.3); EST CRCL DRUG DOSING (CG) 22.62 mL/min; POTASSIUM,K 4.2 mmol/L (3.5-5.1); PROTEIN TOTAL,TP 6.8 g/dL (6.4-8.2)
[2024-02-05 12:37] VITALS: BP 102/63; PULSE 76
== END 2024-02-05 14:15 | disposition home or self-care (01) | DRG 293 ==
LOC: MW.ED 08:14 → MW.MS 11:57
PROVIDERS: ADMIT Family Medicine; ATTEND Family Medicine
DX: I50.9 Heart failure, unspecified (principal); I48.91 Unspecified atrial fibrillation; J44.9 Chronic obstructive pulmonary disease, unspecified; I25.10 Atherosclerotic heart disease of native coronary artery without angina pectoris; N18.9 Chronic kidney disease, unspecified; G89.29 Other chronic pain; Z79.899 Other long term (current) drug therapy; M54.9 Dorsalgia, unspecified; Z68.32 Body mass index [BMI] 32.0-32.9, adult; Z75.8 Other problems related to medical facilities and other health care; E66.9 Obesity, unspecified; E83.42 Hypomagnesemia; E87.8 Other disorders of electrolyte and fluid balance, not elsewhere classified; F17.210 Nicotine dependence, cigarettes, uncomplicated; Z88.2 Allergy status to sulfonamides; Z79.01 Long term (current) use of anticoagulants; Z86.010 Personal history of colon polyps; Z97.3 Presence of spectacles and contact lenses; Z90.49 Acquired absence of other specified parts of digestive tract; Z68.30 Body mass index [BMI] 30.0-30.9, adult; Z98.890 Other specified postprocedural states
CPT/HCPCS: 36415; 71046; 80053; 83735; 83880; 84100; 84484 ×2; 85025; 85379; 85730; 93005; 93970; 94640; 96365; 96366; 96375; 99285; J1940; J3475; J3490; 93010; A9270-GY; J7620-GY

== ENCOUNTER 2024-03-17 15:59 | Inpatient (IN) | payer MEDICARE ==
[2024-03-17] MEDS: Furosemide 40 MG/4 ML VIAL IVPUSH STA ×2 (16:42→16:43)
[2024-03-17 16:45] LABS: HEMATOCRIT 37.9 % (42.0-52.0); HEMOGLOBIN 12.9 g/dL (14.0-18.0); MEAN CORPUSCULAR HEMOGLOBIN 29.9 pg (28.0-32.0); MEAN CORPUSCULAR VOLUME 87.7 fL (83.0-99.0); MEAN PLATELET VOLUME 10.9 fL (9.4-12.4); PLATELET COUNT,PLT 193 K/uL (150-400); RED BLOOD CELL COUNT 4.32 M/uL (4.52-5.90); WHITE BLOOD CELL COUNT,WBC 6.56 K/uL (3.9-11.3)
[2024-03-17 17:08] LABS: INR 1.24 (0.86-1.11); PTT,PARTIAL THROMBOPLSTIN TIME 30.1 SEC (23.9-30.7)
[2024-03-17 17:24] LABS: A/G RATIO 0.5 (0.9-1.6); ALBUMIN 2.3 g/dL (3.4-5.0); BILIRUBIN TOTAL 0.7 mg/dL (0.2-1.0); CALCIUM 8.8 mg/dL (8.5-10.1); CARBON DIOXIDE,CO2 25.1 mmol/L (21.0-32.0); CREATININE 2.8 mg/dL (0.8-1.3); EST CRCL DRUG DOSING (CG) 22.62 mL/min; MAGNESIUM 1.5 mg/dL (1.8-2.4); POTASSIUM,K 3.8 mmol/L (3.5-5.1); PROTEIN TOTAL,TP 6.8 g/dL (6.4-8.2)
[2024-03-17 17:40] LABS: BASOPHILS ABSOLUTE MAN 0.07 K/uL (0.00-0.20); BASOPHILS PERCENT MAN 1 % (0-1); LYMPHOCYTES ABSOLUTE MAN 2.36 K/uL (1.00-4.80); LYMPHOCYTES PERCENT MAN 36 % (24-44); MONOCYTES ABSOLUTE MAN 0.33 K/uL (0.00-0.80); MONOCYTES PERCENT MAN 5 % (0-8); SEG NEUTROPHILS PERCENT MAN 58 % (41-71)
[2024-03-17] MEDS: Magnesium Sulfate/Water 2 GM in Premix Bag 1 BAG IV STA (17:51)
[2024-03-17] MEDS ORDERED: Melatonin 3 MG Tab PO PRN (19:41)
[2024-03-17] MEDS ORDERED: Polyethylene Glycol 3350 Powder 17 GM Packet PO PRN (19:41)
[2024-03-17] MEDS: Sodium Chloride 0.9% 10 ML Syringe FLUSH PRN (19:46)
[2024-03-17] MEDS: Sodium Chloride 0.9% 2.5 ML Syringe FLUSH PRN (19:47)
[2024-03-17] MEDS: Apixaban 5 MG Tab PO SCH (21:31)
[2024-03-17] MEDS: Furosemide 40 MG/4 ML VIAL IVPUSH ONE (21:52)
[2024-03-18 05:30] LABS: HEMATOCRIT 38.1 % (42.0-52.0); HEMOGLOBIN 13.1 g/dL (14.0-18.0); MEAN CORPUSCULAR HEMOGLOBIN 30.3 pg (28.0-32.0); MEAN CORPUSCULAR HGB CONC 34.4 g/dL (32.0-36.0); MEAN PLATELET VOLUME 10.8 fL (9.4-12.4); PLATELET COUNT,PLT 195 K/uL (150-400); RED BLOOD CELL COUNT 4.33 M/uL (4.52-5.90); WHITE BLOOD CELL COUNT,WBC 6.79 K/uL (3.9-11.3)
[2024-03-18 05:44] LABS: LYMPHOCYTES ABSOLUTE MAN 2.65 K/uL (1.00-4.80); LYMPHOCYTES PERCENT MAN 39 % (24-44); MONOCYTES ABSOLUTE MAN 0.54 K/uL (0.00-0.80); MONOCYTES PERCENT MAN 8 % (0-8); SEG NEUTROPHILS PERCENT MAN 53 % (41-71)
[2024-03-18 05:53] LABS: A/G RATIO 0.6 (0.9-1.6); ALBUMIN 2.4 g/dL (3.4-5.0); BILIRUBIN TOTAL 0.8 mg/dL (0.2-1.0); CALCIUM 8.4 mg/dL (8.5-10.1); CARBON DIOXIDE,CO2 23.2 mmol/L (21.0-32.0); CREATININE 2.7 mg/dL (0.8-1.3); EST CRCL DRUG DOSING (CG) 23.46 mL/min; MAGNESIUM 1.7 mg/dL (1.8-2.4); POTASSIUM,K 3.5 mmol/L (3.5-5.1); PROTEIN TOTAL,TP 6.4 g/dL (6.4-8.2)
[2024-03-18] MEDS ORDERED: Furosemide 40 MG/4 ML VIAL IVPUSH SCH (08:00)
[2024-03-18] MEDS: Magnesium Sulfate/Water 2 GM in Premix Bag 1 BAG IV ONE (08:00)
[2024-03-18] MEDS ORDERED: Metoprolol Succinate 25 MG Tab.ER PO SCH (09:00)
[2024-03-18] MEDS: Furosemide 20 MG/2 ML VIAL IVPUSH SCH (18:56)
[2024-03-19] MEDS: Albuterol/Ipratropium 3.0-0.5 MG/3 ML Neb Soln NEB PRN (00:57)
[2024-03-19 05:43] LABS: BASOPHILS ABSOLUTE AUTO 0.02 K/uL (0.00-0.20); BASOPHILS PERCENT AUTO 0.3 % (0.0-1.0); EOSINOPHILS ABSOLUTE AUTO 0.07 K/uL (0.00-0.45); EOSINOPHILS PERCENT AUTO 1.1 % (0.0-6.0); HEMATOCRIT 37.7 % (42.0-52.0); HEMOGLOBIN 12.6 g/dL (14.0-18.0); IMMATURE GRAN ABSOLUTE AUTO 0.02 K/uL (0.00-0.05); IMMATURE GRAN PERCENT AUTO 0.3 % (0.0-0.4); LYMPHOCYTES ABSOLUTE AUTO 1.98 K/uL (1.00-4.80); LYMPHOCYTES PERCENT AUTO 29.8 % (24.0-44.0); MEAN CORPUSCULAR HEMOGLOBIN 29.4 pg (28.0-32.0); MEAN CORPUSCULAR HGB CONC 33.4 g/dL (32.0-36.0); MEAN CORPUSCULAR VOLUME 87.9 fL (83.0-99.0); MEAN PLATELET VOLUME 10.4 fL (9.4-12.4); MONOCYTES ABSOLUTE AUTO 0.61 K/uL (0.00-0.80); MONOCYTES PERCENT AUTO 9.2 % (0.0-8.0); NEUTROPHILS ABSOLUTE AUTO 3.94 K/uL (1.80-7.70); NEUTROPHILS PERCENT AUTO 59.3 % (41.0-71.0); PLATELET COUNT,PLT 183 K/uL (150-400); RED BLOOD CELL COUNT 4.29 M/uL (4.52-5.90); WHITE BLOOD CELL COUNT,WBC 6.64 K/uL (3.9-11.3)
[2024-03-19 06:18] LABS: A/G RATIO 0.5 (0.9-1.6); ALBUMIN 2.3 g/dL (3.4-5.0); BILIRUBIN TOTAL 0.7 mg/dL (0.2-1.0); CALCIUM 8.4 mg/dL (8.5-10.1); CARBON DIOXIDE,CO2 23.9 mmol/L (21.0-32.0); CREATININE 2.7 mg/dL (0.8-1.3); EST CRCL DRUG DOSING (CG) 23.46 mL/min; POTASSIUM,K 3.5 mmol/L (3.5-5.1); PROTEIN TOTAL,TP 6.7 g/dL (6.4-8.2)
[2024-03-19] MEDS: Furosemide 20 MG/2 ML VIAL IVPUSH SCH (08:18)
[2024-03-19 08:23] VITALS: BP 117/71; PULSE 85
== END 2024-03-19 12:00 | disposition home or self-care (01) | DRG 291 ==
LOC: MW.ED 15:59 → MW.MS 19:06 → OBSVTOIN 03-18 09:38
PROVIDERS: ADMIT Family Medicine; ATTEND Family Medicine
DX: I13.0 Hypertensive heart and chronic kidney disease with heart failure and stage 1 through stage 4 chronic kidney disease, or unspecified chronic kidney disease (principal); I50.33 Acute on chronic diastolic (congestive) heart failure; I50.30 Unspecified diastolic (congestive) heart failure; I48.92 Unspecified atrial flutter; N18.4 Chronic kidney disease, stage 4 (severe); I24.89 Other forms of acute ischemic heart disease; Z68.29 Body mass index [BMI] 29.0-29.9, adult; I48.91 Unspecified atrial fibrillation; J44.9 Chronic obstructive pulmonary disease, unspecified; E66.9 Obesity, unspecified; E87.8 Other disorders of electrolyte and fluid balance, not elsewhere classified; I44.0 Atrioventricular block, first degree; Z75.8 Other problems related to medical facilities and other health care; I95.9 Hypotension, unspecified; F17.210 Nicotine dependence, cigarettes, uncomplicated; Z92.3 Personal history of irradiation; Z88.2 Allergy status to sulfonamides; Z79.01 Long term (current) use of anticoagulants; Z90.49 Acquired absence of other specified parts of digestive tract; Z86.010 Personal history of colon polyps; Z79.899 Other long term (current) drug therapy; Z98.890 Other specified postprocedural states
CPT/HCPCS: 36415; 71046; 71046-26; 71250; 71250-26; 74176; 74176-26; 80053; 82977; 83735; 83880; 84484; 85025; 85610; 85730; 93005; 93010; 93306; 96365; 96366; 96375; 99285; 99285-25; A9270-GY; G0378; J1940; J3475; J3490; J7620-GY

== ENCOUNTER 2024-04-12 14:56 | Emergency (ER) | payer MEDICARE ==
[2024-04-12] MEDS ORDERED: Sodium Chloride 0.9% 2.5 ML Syringe FLUSH PRN (15:32)
[2024-04-12] MEDS ORDERED: Sodium Chloride 0.9% 10 ML Syringe FLUSH PRN (15:32)
[2024-04-12] MEDS: Sodium Chloride 0.9% 500 ML IV SCH (15:52)
[2024-04-12 15:58] LABS: BASOPHILS ABSOLUTE AUTO 0.02 K/uL (0.00-0.20); BASOPHILS PERCENT AUTO 0.3 % (0.0-1.0); EOSINOPHILS ABSOLUTE AUTO 0.02 K/uL (0.00-0.45); EOSINOPHILS PERCENT AUTO 0.3 % (0.0-6.0); HEMATOCRIT 33.9 % (42.0-52.0); HEMOGLOBIN 12.5 g/dL (14.0-18.0); IMMATURE GRAN ABSOLUTE AUTO 0.02 K/uL (0.00-0.05); IMMATURE GRAN PERCENT AUTO 0.3 % (0.0-0.4); LYMPHOCYTES PERCENT AUTO 15.9 % (24.0-44.0); MEAN CORPUSCULAR HEMOGLOBIN 30.3 pg (28.0-32.0); MEAN CORPUSCULAR HGB CONC 36.9 g/dL (32.0-36.0); MEAN CORPUSCULAR VOLUME 82.1 fL (83.0-99.0); MEAN PLATELET VOLUME 11.4 fL (9.4-12.4); MONOCYTES ABSOLUTE AUTO 0.56 K/uL (0.00-0.80); MONOCYTES PERCENT AUTO 8.1 % (0.0-8.0); NEUTROPHILS ABSOLUTE AUTO 5.19 K/uL (1.80-7.70); NEUTROPHILS PERCENT AUTO 75.1 % (41.0-71.0); PLATELET COUNT,PLT 233 K/uL (150-400); RED BLOOD CELL COUNT 4.13 M/uL (4.52-5.90); WHITE BLOOD CELL COUNT,WBC 6.91 K/uL (3.9-11.3)
[2024-04-12 16:44] LABS: A/G RATIO 0.4 (0.9-1.6); BILIRUBIN TOTAL 5.1 mg/dL (0.2-1.0); CALCIUM 9.1 mg/dL (8.5-10.1); CARBON DIOXIDE,CO2 23.4 mmol/L (21.0-32.0); CREATININE 3.4 mg/dL (0.8-1.3); EST CRCL DRUG DOSING (CG) 17.98 mL/min; POTASSIUM,K 3.2 mmol/L (3.5-5.1); PROTEIN TOTAL,TP 6.6 g/dL (6.4-8.2)
[2024-04-12 17:28] LABS: APPEARANCE,URINE CLEAR; COLOR,URINE BROWN; GLUCOSE,URINE NEGATIVE (NEGATIVE); KETONES,URINE NEGATIVE (NEGATIVE); LEUKOCYTE ESTERASE,URINE NEGATIVE (NEGATIVE); NITRITE,URINE NEGATIVE (NEGATIVE); OCCULT BLOOD,URINE SMALL (NEGATIVE); PH,URINE 5.5 (5.0-8.0); PROTEIN,URINE 100 mg/dL (NEGATIVE)
[2024-04-12 17:29] LABS: BILIRUBIN,URINE MODERATE (NEGATIVE)
[2024-04-12 17:35] LABS: RBC,URINE 0-1 (0-2/HPF)
[2024-04-12 17:36] LABS: AMORPHOUS SEDIMENT,URINE MODERATE (NEGATIVE); BACTERIA,URINE RARE (NEGATIVE); EPITHELIAL CELLS,URINE RARE (NONE-FEW); HYALINE CASTS,URINE 0-2 (0-2/LPF); WBC,URINE 0-1 (0-5/HPF)
[2024-04-12 20:40] VITALS: BP 115/77; PULSE 97
== END 2024-04-12 19:45 | disposition left against medical advice (07) ==
LOC: MW.ED 14:56
DX: I11.0 Hypertensive heart disease with heart failure (principal); I50.9 Heart failure, unspecified; E85.89 Other amyloidosis; N17.9 Acute kidney failure, unspecified; R17 Unspecified jaundice; J44.9 Chronic obstructive pulmonary disease, unspecified; E66.9 Obesity, unspecified; Z90.49 Acquired absence of other specified parts of digestive tract; F17.210 Nicotine dependence, cigarettes, uncomplicated; Z79.899 Other long term (current) drug therapy; Z88.2 Allergy status to sulfonamides; Z75.8 Other problems related to medical facilities and other health care; R74.01 Elevation of levels of liver transaminase levels
CPT/HCPCS: 36415; 71045; 76705; 80053; 81001; 83880; 84484; 85025; 85379; 93005; 96360; 99285; J7040; 93010